=== PATIENT | male | born 1965 ===

== ENCOUNTER 2020-06-20 10:01 | Inpatient (IN) | payer OTHER ==
[2020-06-20] MEDS ORDERED: Sodium Chloride 0.9% 2.5 ML Syringe FLUSH PRN ×2 (10:19→13:37)
[2020-06-20] MEDS ORDERED: MVI, Adult with Vitamin K 10 ML, Thiamine 100 MG, Folic Acid 1 MG in Sodium Chloride 0.... IV ONE ×4 (10:19)
[2020-06-20] MEDS ORDERED: Sodium Chloride 0.9% 10 ML Syringe FLUSH PRN (10:19)
--- NOTE | 2020-06-20 10:46 | EDM.PDOC ---
ED HPI GENERAL MEDICAL PROBLEM - General Chief Complaint: General Stated Complaint: INTOXICATED Time Seen by Provider: 06/20/20 10:14 Source of Information: Reports: Patient, EMS History Limitations: Reports: Altered Mental Status - History of Present Illness INITIAL COMMENTS - FREE TEXT/NARRATIVE: HISTORY AND PHYSICAL: History of present illness: Patient is a 55 year-old male who presents to the ED today via EMS for concern of alcohol intoxication and vomiting. Per EMS, patient has been on a 1 month "drinking binge "and has been vomiting periodically over the last 2 weeks. Per EMS, patient has not been eating well the last 2 weeks due to drinking and vomiting. Per EMS, patient came to [place] 1 month ago from [place] on the train and is living at a hotel. Upon arrival, patient appears intoxicated and mumbles words inappropriately. HPI is limited due to his mental status. Review of systems: As per history of present illness and below otherwise all systems reviewed and negative. Past medical history: As per history of present illness and as reviewed below otherwise noncontributory. Surgical history: As per history of present illness and as reviewed below otherwise noncontributory. Social history: See social history for further information Family history: As per history of present illness and as reviewed below otherwise noncontributory. Physical exam: General: Patient is laying on exam table, his eyes are open to verbal command, speaks words inappropriately, localizes pain. He appears comfortable and does have hiccups on exam. He does smell of alcohol. HEENT: Atraumatic, normocephalic, pupils equal and reactive bilaterally, negative for conjunctival pallor or scleral icterus, mucous membranes dry and tacky, throat clear, neck supple, nontender, trachea midline. No drooling or trismus noted. No meningeal signs. No hot potato voice noted. Lungs: Clear to auscultation, breath sounds equal bilaterally, chest nontender. Heart: S1S2, regular rate and rhythm without overt murmur Abdomen: Soft, nondistended, nontender. Negative for masses or hepatosplenomegaly. Negative for costovertebral tenderness. Pelvis: Stable nontender. Genitourinary: Deferred. Rectal: Deferred. Skin: Intact, warm, dry. No lesions or rashes noted. Extremities: Atraumatic, negative for cords or calf pain. Neurovascular unremarkable. Neuro: Eyes are open to verbal command, speaks words inappropriately, localizes pain. Cranial nerves II-VII intact. Notes: GCS 11. CIWA 7. Patient has not had any vomiting today in the ED. After reassessment following diagnostics, patient is able to communicate effectively with GCS of 15. Patient states he has been drinking continuously for the past 1 month but has had intermittent vomiting the past 2 weeks and consistently vomiting today. Desires detox from alcohol but states he will withdraw if he stops drinking. I did call and speak to Dr. Mireles, hospitalist on-call, and thoroughly discussed patient's case. Will admit inpatient for alcohol detox. Voices understanding and is agreeable to plan of care. Denies any further questions or concerns at this time. Diagnostics: CBC, CMP, UA, Acetaminophen, Salicylate, TSH, Ethanol, Head ct, CXR, Trop, Bedside glucose, Magnesium, COVID19 Therapeutics: Banana bag, Zofran, 1mg Ativan Impression: Alcohol intoxication with nausea Desire for alcohol detox Plan: Admit to inpatient to Dr. Bartlett Definitive disposition and diagnosis as appropriate pending reevaluation and review of above. - Related Data Allergies Allergy/AdvReac Type Severity Reaction Status Date / Time No Known Allergies Allergy Verified 06/20/20 18:25 Home Meds: Home Meds . [No Known Home Meds] 06/20/20 [History] Past Medical History - Past Health History Medical/Surgical History: Denies Medical/Surgical History Social & Family History - Family History Family Medical History: Noncontributory - Tobacco Use Tobacco Use Status *Q: Current Every Day Tobacco User Years of Tobacco use: 25 Packs/Tins Daily: 0.5 - Recreational Drug Use Recreational Drug Use: No ED ROS GENERAL - Review of Systems Review Of Systems: Comprehensive ROS is negative, except as noted in HPI. ED EXAM, GENERAL - Physical Exam Exam: See Below (see dictation) Course - Vital Signs Last Recorded V/S: Last Vital Signs Temp 99.2 F 06/20/20 15:53 Pulse 117 H 06/20/20 15:53 Resp 18 06/20/20 15:53 BP 139/86 06/20/20 15:53 Pulse Ox 98 06/20/20 15:53 - Orders/Labs/Meds Orders: Active Orders 24 hr Category Date Time Status Folic Acid Med 06/21/20 09:00 Active 1 mg SUBCUT DAILY LORazepam [Ativan] Med 06/20/20 12:22 Active See Protocol IVPUSH Q4H PRN Thiamine [Vitamin B-1] Med 06/21/20 09:00 Active 100 mg IVPUSH DAILY Medication Orders Folic Acid (Folic Acid) 1 mg SUBCUT DAILY SOBIA Sodium Chloride (Normal Saline) 1,000 mls @ 125 mls/hr IV Q8H SOBIA Last Admin: 06/20/20 15:27 Dose: 125 mls/hr Documented by: PROFLUC Pantoprazole Sodium 40 mg/ (Sodium Chloride) 10 mls @ 300 mls/hr IV Q24H SOBIA Lorazepam (Ativan) 0 mg IVPUSH Q4H PRN; Protocol PRN Reason: CIWAA Last Admin: 06/20/20 16:56 Dose: 1 mg Documented by: MARIA G Ondansetron HCl (Zofran) 4 mg IVPUSH Q4H PRN PRN Reason: Nausea Promethazine HCl (Phenergan) 25 mg IM Q6H PRN PRN Reason: Nausea Last Admin: 06/20/20 15:27 Dose: 25 mg Documented by: PROFLUC Sodium Chloride (Saline Flush) 2.5 ml FLUSH ASDIRECTED PRN PRN Reason: Keep Vein Open Thiamine HCl (Vitamin B-1) 100 mg IVPUSH DAILY [facility] Labs: Laboratory Tests 06/20/20 06/20/20 06/20/20 Range/Units 10:00 10:00 10:00 WBC 10.25 (4.0-11.0) K/uL RBC 5.23 (4.50-5.90) M/uL Hgb 15.8 (13.0-17.0) g/dL Hct 46.0 (38.0-50.0) % MCV 88.0 (80.0-98.0) fL MCH 30.2 (27.0-32.0) pg MCHC 34.3 (31.0-37.0) g/dL RDW Std Deviation 48.0 (28.0-62.0) fl RDW Coeff of Muna 15 (11.0-15.0) % Plt Count 199 (150-400) K/uL MPV 9.90 (7.40-12.00) fL Neut % (Auto) 57.2 (48.0-80.0) % Lymph % (Auto) 32.3 (16.0-40.0) % [place] % (Auto) 9.4 (0.0-15.0) % Eos % (Auto) 0.2 (0.0-7.0) % Baso % (Auto) 0.9 (0.0-1.5) % Neut # (Auto) 5.9 H (1.4-5.7) K/uL Lymph # (Auto) 3.3 H (0.6-2.4) K/uL [place] # (Auto) 1.0 H (0.0-0.8) K/uL Eos # (Auto) 0.0 (0.0-0.7) K/uL Baso # (Auto) 0.1 (0.0-0.1) K/uL Nucleated RBC % 0.0 /100WBC Nucleated RBCs # 0 K/uL Sodium 136 (136-148) mmol/L Potassium 3.7 (3.5-5.1) mmol/L Chloride 94 L (98-107) mmol/L Carbon Dioxide 25.6 (21.0-32.0) mmol/L BUN 8 (7.0-18.0) mg/dL Creatinine 0.8 (0.8-1.3) mg/dL Est Cr Clr Drug Dosing 108.99 mL/min Estimated GFR (MDRD) > 60.0 ml/min Glucose 143 H (74-106) mg/dL POC Glucose (60-110) mg/dL Calcium 9.6 (8.5-10.1) mg/dL Magnesium 2.5 H (1.8-2.4) mg/dL Total Bilirubin 0.6 (0.2-1.0) mg/dL AST 91 H (15-37) IU/L ALT 140 H (14-63) IU/L Alkaline Phosphatase 82 (46-116) U/L Troponin I (0.000-0.056) ng/mL Total Protein 8.2 (6.4-8.2) g/dL Albumin 4.2 (3.4-5.0) g/dL Globulin 4.0 (2.6-4.0) g/dL Albumin/Globulin Ratio 1.0 (0.9-1.6) TSH 3rd Generation 0.71 (0.36-3.74) uIU/mL Urine Color Urine Appearance Urine pH (5.0-8.0) Ur Specific [place] (1.001-1.035) Urine Protein (NEGATIVE) mg/dL Urine Glucose (UA) (NEGATIVE) mg/dL Urine Ketones (NEGATIVE) mg/dL Urine Occult Blood (NEGATIVE) Urine Nitrite (NEGATIVE) Urine Bilirubin (NEGATIVE) Urine Urobilinogen (<2.0) EU/dL Ur Leukocyte Esterase (NEGATIVE) Salicylates 1.4 (0-20) mg/dL Urine Opiates Screen (NEGATIVE) Ur Oxycodone Screen (NEGATIVE) Urine Methadone Screen (NEGATIVE) Acetaminophen <2.0 ug/mL Ur Barbiturates Screen (NEGATIVE) Ur Phencyclidine Scrn (NEGATIVE) Ur Amphetamine Screen (NEGATIVE) U Methamphetamines Scrn (NEGATIVE) U Benzodiazepines Scrn (NEGATIVE) U Cocaine Metab Screen (NEGATIVE) U Marijuana (THC) Screen (NEGATIVE) Ethyl Alcohol 334 mg/dL 06/20/20 06/20/20 06/20/20 Range/Units 10:00 10:48 11:35 WBC (4.0-11.0) K/uL RBC (4.50-5.90) M/uL Hgb (13.0-17.0) g/dL Hct (38.0-50.0) % MCV (80.0-98.0) fL MCH (27.0-32.0) pg MCHC (31.0-37.0) g/dL RDW Std Deviation (28.0-62.0) fl RDW Coeff of Muna (11.0-15.0) % Plt Count (150-400) K/uL MPV (7.40-12.00) fL Neut % (Auto) (48.0-80.0) % Lymph % (Auto) (16.0-40.0) % [place] % (Auto) (0.0-15.0) % Eos % (Auto) (0.0-7.0) % Baso % (Auto) (0.0-1.5) % Neut # (Auto) (1.4-5.7) K/uL Lymph # (Auto) (0.6-2.4) K/uL [place] # (Auto) (0.0-0.8) K/uL Eos # (Auto) (0.0-0.7) K/uL Baso # (Auto) (0.0-0.1) K/uL Nucleated RBC % /100WBC Nucleated RBCs # K/uL Sodium (136-148) mmol/L Potassium (3.5-5.1) mmol/L Chloride (98-107) mmol/L Carbon Dioxide (21.0-32.0) mmol/L BUN (7.0-18.0) mg/dL Creatinine (0.8-1.3) mg/dL Est Cr Clr Drug Dosing mL/min Estimated GFR (MDRD) ml/min Glucose (74-106) mg/dL POC Glucose 118 H (60-110) mg/dL Calcium (8.5-10.1) mg/dL Magnesium (1.8-2.4) mg/dL Total Bilirubin (0.2-1.0) mg/dL AST (15-37) IU/L ALT (14-63) IU/L Alkaline Phosphatase (46-116) U/L Troponin I < 0.050 (0.000-0.056) ng/mL Total Protein (6.4-8.2) g/dL Albumin (3.4-5.0) g/dL Globulin (2.6-4.0) g/dL Albumin/Globulin Ratio (0.9-1.6) TSH 3rd Generation (0.36-3.74) uIU/mL Urine Color Urine Appearance Urine pH (5.0-8.0) Ur Specific [place] (1.001-1.035) Urine Protein (NEGATIVE) mg/dL Urine Glucose (UA) (NEGATIVE) mg/dL Urine Ketones (NEGATIVE) mg/dL Urine Occult Blood (NEGATIVE) Urine Nitrite (NEGATIVE) Urine Bilirubin (NEGATIVE) Urine Urobilinogen (<2.0) EU/dL Ur Leukocyte Esterase (NEGATIVE) Salicylates (0-20) mg/dL Urine Opiates Screen NEGATIVE (NEGATIVE) Ur Oxycodone Screen NEGATIVE (NEGATIVE) Urine Methadone Screen NEGATIVE (NEGATIVE) Acetaminophen ug/mL Ur Barbiturates Screen NEGATIVE (NEGATIVE) Ur Phencyclidine Scrn NEGATIVE (NEGATIVE) Ur Amphetamine Screen NEGATIVE (NEGATIVE) U Methamphetamines Scrn NEGATIVE (NEGATIVE) U Benzodiazepines Scrn NEGATIVE (NEGATIVE) U Cocaine Metab Screen NEGATIVE (NEGATIVE) U Marijuana (THC) Screen NEGATIVE (NEGATIVE) Ethyl Alcohol mg/dL 06/20/20 Range/Units 11:35 WBC (4.0-11.0) K/uL RBC (4.50-5.90) M/uL Hgb (13.0-17.0) g/dL Hct (38.0-50.0) % MCV (80.0-98.0) fL MCH (27.0-32.0) pg MCHC (31.0-37.0) g/dL RDW Std Deviation (28.0-62.0) fl RDW Coeff of Muna (11.0-15.0) % Plt Count (150-400) K/uL MPV (7.40-12.00) fL Neut % (Auto) (48.0-80.0) % Lymph % (Auto) (16.0-40.0) % [place] % (Auto) (0.0-15.0) % Eos % (Auto) (0.0-7.0) % Baso % (Auto) (0.0-1.5) % Neut # (Auto) (1.4-5.7) K/uL Lymph # (Auto) (0.6-2.4) K/uL [place] # (Auto) (0.0-0.8) K/uL Eos # (Auto) (0.0-0.7) K/uL Baso # (Auto) (0.0-0.1) K/uL Nucleated RBC % /100WBC Nucleated RBCs # K/uL Sodium (136-148) mmol/L Potassium (3.5-5.1) mmol/L Chloride (98-107) mmol/L Carbon Dioxide (21.0-32.0) mmol/L BUN (7.0-18.0) mg/dL Creatinine (0.8-1.3) mg/dL Est Cr Clr Drug Dosing mL/min Estimated GFR (MDRD) ml/min Glucose (74-106) mg/dL POC Glucose (60-110) mg/dL Calcium (8.5-10.1) mg/dL Magnesium (1.8-2.4) mg/dL Total Bilirubin (0.2-1.0) mg/dL AST (15-37) IU/L ALT (14-63) IU/L Alkaline Phosphatase (46-116) U/L Troponin I (0.000-0.056) ng/mL Total Protein (6.4-8.2) g/dL Albumin (3.4-5.0) g/dL Globulin (2.6-4.0) g/dL Albumin/Globulin Ratio (0.9-1.6) TSH 3rd Generation (0.36-3.74) uIU/mL Urine Color YELLOW Urine Appearance CLEAR Urine pH 6.0 (5.0-8.0) Ur Specific [place] 1.010 (1.001-1.035) Urine Protein NEGATIVE (NEGATIVE) mg/dL Urine Glucose (UA) NEGATIVE (NEGATIVE) mg/dL Urine Ketones NEGATIVE (NEGATIVE) mg/dL Urine Occult Blood NEGATIVE (NEGATIVE) Urine Nitrite NEGATIVE (NEGATIVE) Urine Bilirubin NEGATIVE (NEGATIVE) Urine Urobilinogen 4.0 H (<2.0) EU/dL Ur Leukocyte Esterase NEGATIVE (NEGATIVE) Salicylates (0-20) mg/dL Urine Opiates Screen (NEGATIVE) Ur Oxycodone Screen (NEGATIVE) Urine Methadone Screen (NEGATIVE) Acetaminophen ug/mL Ur Barbiturates Screen (NEGATIVE) Ur Phencyclidine Scrn (NEGATIVE) Ur Amphetamine Screen (NEGATIVE) U Methamphetamines Scrn (NEGATIVE) U Benzodiazepines Scrn (NEGATIVE) U Cocaine Metab Screen (NEGATIVE) U Marijuana (THC) Screen (NEGATIVE) Ethyl Alcohol mg/dL Meds: Medications Generic Name Dose Route Start Last Admin Trade Name Freq PRN Reason Stop Dose Admin Folic Acid 1 mg 06/21/20 09:00 Folic Acid SUBCUT DAILY SOBIA Sodium Chloride 1,000 mls @ 125 mls/hr 06/20/20 14:30 06/20/20 15:27 Normal Saline IV 125 mls/hr Q8H SOBIA Administration Pantoprazole Sodium 40 mg/ 10 mls @ 300 mls/hr 06/21/20 09:00 Sodium Chloride IV Q24H SOBIA Lorazepam 0 mg 06/20/20 12:22 06/20/20 16:56 Ativan IVPUSH 1 mg Q4H PRN Administration CIWAA Protocol Ondansetron HCl 4 mg 06/20/20 12:23 Zofran IVPUSH Q4H PRN Nausea Promethazine HCl 25 mg 06/20/20 12:29 06/20/20 15:27 Phenergan IM 25 mg Q6H PRN Administration Nausea Sodium Chloride 2.5 ml 06/20/20 13:37 Saline Flush FLUSH ASDIRECTED PRN Keep Vein Open Thiamine HCl 100 mg 06/21/20 09:00 Vitamin B-1 IVPUSH DAILY SOBIA Discontinued Medications Generic Name Dose Route Start Last Admin Trade Name Artemio PRN Reason Stop Dose Admin Fentanyl Confirm 06/20/20 13:08 06/20/20 13:26 Sublimaze Administered 06/20/20 13:09 Not Given Dose 100 mcg .ROUTE .STK-MED ONE Multivitamins/Minerals 10 ml/ 1,011.2 mls @ 999 mls/hr 06/20/20 10:19 06/20/20 10:44 Thiamine HCl 100 mg/ Folic IV 06/20/20 11:19 999 mls/hr Acid 1 mg/ Sodium Chloride ONETIME ONE Administration Pantoprazole Sodium 40 mg/ 20 mls @ 420 mls/hr 06/20/20 12:58 06/20/20 13:06 Sodium Chloride IVPUSH 06/20/20 13:00 420 mls/hr ONETIME ONE Administration Propofol Confirm 06/20/20 13:09 06/20/20 13:26 Diprivan 100 Ml Administered 06/20/20 13:10 Not Given Dose 100 mls @ as directed .ROUTE .STK-MED ONE Lorazepam 1 mg 06/20/20 12:18 06/20/20 12:34 Ativan IVPUSH 06/20/20 12:19 1 mg ONETIME ONE Administration Midazolam HCl Confirm 06/20/20 13:08 06/20/20 13:27 Versed 1 Mg/Ml Administered 06/20/20 13:09 Not Given Dose 2 mg .ROUTE .STK-MED ONE Ondansetron HCl 4 mg 06/20/20 10:51 06/20/20 11:30 Zofran IVPUSH 06/20/20 10:52 4 mg ONETIME ONE Administration Ondansetron HCl 4 mg 06/20/20 12:18 06/20/20 12:34 Zofran IVPUSH 06/20/20 12:19 4 mg ONETIME ONE Administration Pantoprazole Sodium 40 mg 06/20/20 12:30 06/20/20 13:06 Protonix Iv IV Not Given Q24H SOBIA Sodium Chloride 10 ml 06/20/20 10:19 06/20/20 10:45 Saline Flush FLUSH 10 ml ASDIRECTED PRN Administration Keep Vein Open Sodium Chloride 2.5 ml 06/20/20 10:19 06/20/20 10:45 Saline Flush FLUSH 2.5 ml ASDIRECTED PRN Administration Keep Vein Open Departure - Departure Time of Disposition: 13:18 Disposition: Admitted As Inpatient 67 Clinical Impression: Nausea, Desire for detoxification Alcohol intoxication Qualifiers: Complication of substance-induced condition: with unspecified complication Qualified Code(s): F10.929 - Alcohol use, unspecified with intoxication, unspecified - Discharge Information Sepsis Event Note (ED) - Evaluation Sepsis Screening Result: No Definite Risk - Focused Exam Vital Signs: Vital Signs Temp Pulse Resp BP Pulse Ox 06/20/20 11:57 104 H 132/88 99 06/20/20 10:57 108 H 120/85 98 06/20/20 10:28 106 H 133/89 100 06/20/20 10:03 97.4 F 107 H 16 136/87 100
--- NOTE | 2020-06-20 10:49 | PCM.SN.2 ---
- Free Text/Narrative Note: 12-Lead ECG Interpretation Acquired: 10:38 AM Rhythm: Sinus tachycardia Rate: 110 bpm [place]: Normal Intervals: Prolonged QT interval 515 ms of manual calculation Ectopy: None RV Strain: No obvious RV strain pattern. ST Segments/T-Waves: No notable changes Acute Ischemic Changes: None apparent Interpretation: No obvious or convincing infarct. Severe baseline wander, twelve-lead ECG will need to be repeated. Nondiagnostic for ischemia.
[2020-06-20] MEDS ORDERED: Ondansetron 4 MG/2 ML SDV IVPUSH ONE ×2 (10:51→12:18)
--- NOTE | 2020-06-20 10:53 | PCM.SN.2 ---
- Free Text/Narrative Note: 12-Lead ECG Interpretation #2 Acquired: 10:48 AM Rhythm: Sinus tachycardia Rate: 104 bpm [place]: Normal Intervals: Normal, previously seen QT prolongation has resolved. Ectopy: None RV Strain: No obvious RV strain pattern. ST Segments/T-Waves: No notable changes Acute Ischemic Changes: None apparent Interpretation: No STEMI, normal QT interval compared to most recent ECG from 10:38 AM.
[2020-06-20 10:58] LABS: ACETAMINOPHEN <2.0 ug/mL
[2020-06-20 11:17] LABS: BLOOD UREA NITROGEN,BUN 8 mg/dL (7.0-18.0); CARBON DIOXIDE,CO2 25.6 mmol/L (21.0-32.0); CHLORIDE,CL 94 mmol/L (98-107); GLUCOSE RANDOM 143 mg/dL (74-106); POTASSIUM,K 3.7 mmol/L (3.5-5.1); SODIUM,NA 136 mmol/L (136-148)
--- NOTE | 2020-06-20 11:27 | CR ---
INDICATION: Altered mental status. TECHNIQUE: Portable AP image of the chest. COMPARISON: None. FINDINGS: Lungs and pleural spaces clear. Heart, mediastinum and pulmonary vessels normal. No significant osseous abnormality. IMPRESSION: Negative chest. Dictated by Alexander Mcgowan MD @ Jun 20 2020 11:25AM Signed by Dr. Alexander Mcgowan @ Jun 20 2020 11:25AM
--- NOTE | 2020-06-20 12:01 | CT ---
INDICATION: Altered mental status COMPARISON: None TECHNIQUE: CT examination of the head was performed as axial sections without intravenous contrast. Images were obtained from the vertex of the skull through the skull base. Please note that all CT scans at this facility use dose modulation, iterative reconstruction, and/or weight-based dosing when appropriate to reduce radiation dose to as low as reasonably achievable. FINDINGS: The brain shows no sign of mass lesion, mass effect, hemorrhage, or edema. There are involutional changes. There is moderate cortical atrophy and there is mild white matter disease. There is no hydrocephalus. The visualized portions of the orbits are normal in appearance. The osseous structures are normal in appearance with no sign of abnormality in the skull base or calvarium. There are incidental paranasal sinus mucosal inflammatory changes which appear to be chronic. IMPRESSION: Moderate cortical atrophy. No acute intracranial findings. Incidental paranasal sinus mucosal inflammatory changes which appear to be chronic. Please note that all CT scans at this facility use dose modulation, iterative reconstruction, and/or weight-based dosing when appropriate to reduce radiation dose to as low as reasonably achievable. Dictated by Hosea Roman MD @ Jun 20 2020 11:58AM Signed by Dr. Hosea Roman @ Jun 20 2020 12:00PM
[2020-06-20] MEDS ORDERED: LORazepam 2 MG/ML SDV IVPUSH ONE (12:18)
[2020-06-20] MEDS ORDERED: Promethazine 25 MG/ML SDV IM PRN (12:29)
[2020-06-20] MEDS ORDERED: Pantoprazole 40 MG in Sodium Chloride 0.9% 20 ML IVPUSH ONE (12:58)
[2020-06-20] MEDS: Pantoprazole 40 MG Vial IV SCH ×2 (13:03→13:06)
[2020-06-20] MEDS ORDERED: Midazolam 1 MG/ML 2 ML SDV ONE (13:08)
[2020-06-20] MEDS ORDERED: fentaNYL 100 MCG/2 ML SDV ONE (13:08)
[2020-06-20] MEDS ORDERED: propofoL 0 ML ONE (13:09)
--- NOTE | 2020-06-20 14:14 | PCM.HP.2 ---
H&P History of Present Illness - General Date of Service: 06/20/20 Admit Problem/Dx: Admission Diagnosis/Problem Admission Diagnosis/Problem Alcohol intoxication Source of Information: Patient History Limitations: Reports: No Limitations - History of Present Illness Initial Comments - Free Text/Narative: This 55-year-old male with PMH of alcohol abuse comes in to the ER today with EMS for complaints of nausea vomiting. He is acutely intoxicated. He is very vague with symptoms. He reports that he has been nauseated and vomiting for up to 2 weeks. Has not eaten regularly in 2 weeks. Reports that he has been drinking 1/5-1/5 and a half of liquor daily. Reports that he started drinking again 1 month ago. He has been in multiple inpatient rehab centers. Reports he wants to just detox now and think about it later. Denies any chest pain shortness of breath. Reports some mild abdominal pain. No diarrhea no black or bloody bowel movements. emesis with blood streaking intermittently. Denies urinary concerns no focal neurologic deficits. Reports half a pack a day smoker. No recreational drug use. In the ER WBC normal at 10.25. Platelet count 199,000 NA 136 CL 94 glucose 143 mag 2.5 AST 91 ALT 140 troponin negative chest x-ray negative UA negative U tox negative EtOH level 334. EKG ST with no ST elevation or t wave changes. He will be admitted for alcohol detox as well as nausea vomiting. - Related Data Allergies/Adverse Reactions: Allergies Allergy/AdvReac Type Severity Reaction Status Date / Time No Known Allergies Allergy Verified 06/20/20 10:07 Home Medications: Home Meds . [No Known Home Meds] 06/20/20 [History] Past Medical History - Past Health History Medical/Surgical History: Denies Medical/Surgical History Cardiovascular History: Reports: None. Denies: CAD, Heart Failure, Hypertension Respiratory History: Reports: None. Denies: COPD, SOB Musculoskeletal History: Reports: None Psychiatric History: Reports: Addiction Endocrine/Metabolic History: Reports: None. Denies: Diabetes, Type II, Hypothyroidism - Infectious Disease History Infectious Disease History: Reports: None. Denies: Hepatitis B, Hepatitis C, HI V-Human Immunodeficiency Virus, MRSA Social & Family History - Family History Family Medical History: Noncontributory - Tobacco Use Tobacco Use Status *Q: Current Every Day Tobacco User Years of Tobacco use: 25 Packs/Tins Daily: 0.5 - Alcohol Use Alcohol Use History: Yes Days Per Week of Alcohol Use: 7 Number of Drinks Per Day: 10 Total Drinks Per Week: 70 Alcohol Use Frequency: Daily Desires Substance Cessation Medication: Refuses FDA Approved Med - Recreational Drug Use Recreational Drug Use: No - Living Situation & Occupation Social History Comment: living in hotel. Came to [place] on the train 1 month ago. H&P Review of Systems - Review of Systems: Review Of Systems: See Below General: Reports: Malaise, Fatigue, Decreased Appetite HEENT: Reports: No Symptoms. Denies: Headaches, Visual Changes Pulmonary: Reports: No Symptoms. Denies: Shortness of Breath, Cough Cardiovascular: Reports: No Symptoms. Denies: Chest Pain Gastrointestinal: Reports: Abdominal Pain (epigastric), Decreased Appetite, Nausea, Vomiting. Denies: Black Stool, Bloody Stool, Diarrhea Genitourinary: Reports: No Symptoms. Denies: Dysuria, Frequency Musculoskeletal: Reports: No Symptoms Skin: Reports: No Symptoms Psychiatric: Reports: No Symptoms Neurological: Reports: No Symptoms Hematologic/Lymphatic: Reports: No Symptoms Immunologic: Reports: No Symptoms Exam - Exam Exam: See Below - Vital Signs Vital Signs: Last Vital Signs Temp 97.4 F 06/20/20 10:03 Pulse 116 H 06/20/20 13:13 Resp 16 06/20/20 10:03 BP 123/81 06/20/20 13:13 Pulse Ox 97 06/20/20 13:13 Weight: 77.111 kg - Exam General: Alert, Oriented, Cooperative HEENT: Conjunctiva Clear. No: Mucosa Moist & [place] (dry cracked lips) Neck: Supple, Trachea Midline Lungs: Clear to Auscultation, Normal Respiratory Effort Cardiovascular: Regular Rate, Regular Rhythm GI/Abdominal Exam: Normal Bowel Sounds, Soft, Tender (epigastric) Extremities: Normal Inspection, Normal Range of Motion, Non-Tender, No Pedal Edema Neuro Extensive - Mental Status: Alert, Oriented x3 Neuro Extensive - Motor, Sensory, Reflexes: CN II-XII Intact Psychiatric: Alert, Normal Affect, Anxious, Withdrawal Symptoms (tremors) - Patient Data Lab Results Last 24 hrs: Laboratory Results - last 24 hr 06/20/20 06/20/20 06/20/20 Range/Units 10:00 10:00 10:00 WBC 10.25 (4.0-11.0) K/uL RBC 5.23 (4.50-5.90) M/uL Hgb 15.8 (13.0-17.0) g/dL Hct 46.0 (38.0-50.0) % MCV 88.0 (80.0-98.0) fL MCH 30.2 (27.0-32.0) pg MCHC 34.3 (31.0-37.0) g/dL RDW Std Deviation 48.0 (28.0-62.0) fl RDW Coeff of Muna 15 (11.0-15.0) % Plt Count 199 (150-400) K/uL MPV 9.90 (7.40-12.00) fL Neut % (Auto) 57.2 (48.0-80.0) % Lymph % (Auto) 32.3 (16.0-40.0) % [place] % (Auto) 9.4 (0.0-15.0) % Eos % (Auto) 0.2 (0.0-7.0) % Baso % (Auto) 0.9 (0.0-1.5) % Neut # (Auto) 5.9 H (1.4-5.7) K/uL Lymph # (Auto) 3.3 H (0.6-2.4) K/uL [place] # (Auto) 1.0 H (0.0-0.8) K/uL Eos # (Auto) 0.0 (0.0-0.7) K/uL Baso # (Auto) 0.1 (0.0-0.1) K/uL Nucleated RBC % 0.0 /100WBC Nucleated RBCs # 0 K/uL Sodium 136 (136-148) mmol/L Potassium 3.7 (3.5-5.1) mmol/L Chloride 94 L (98-107) mmol/L Carbon Dioxide 25.6 (21.0-32.0) mmol/L BUN 8 (7.0-18.0) mg/dL Creatinine 0.8 (0.8-1.3) mg/dL Est Cr Clr Drug Dosing 108.99 mL/min Estimated GFR (MDRD) > 60.0 ml/min Glucose 143 H (74-106) mg/dL POC Glucose (60-110) mg/dL Calcium 9.6 (8.5-10.1) mg/dL Magnesium 2.5 H (1.8-2.4) mg/dL Total Bilirubin 0.6 (0.2-1.0) mg/dL AST 91 H (15-37) IU/L ALT 140 H (14-63) IU/L Alkaline Phosphatase 82 (46-116) U/L Troponin I (0.000-0.056) ng/mL Total Protein 8.2 (6.4-8.2) g/dL Albumin 4.2 (3.4-5.0) g/dL Globulin 4.0 (2.6-4.0) g/dL Albumin/Globulin Ratio 1.0 (0.9-1.6) TSH 3rd Generation 0.71 (0.36-3.74) uIU/mL Urine Color Urine Appearance Urine pH (5.0-8.0) Ur Specific [place] (1.001-1.035) Urine Protein (NEGATIVE) mg/dL Urine Glucose (UA) (NEGATIVE) mg/dL Urine Ketones (NEGATIVE) mg/dL Urine Occult Blood (NEGATIVE) Urine Nitrite (NEGATIVE) Urine Bilirubin (NEGATIVE) Urine Urobilinogen (<2.0) EU/dL Ur Leukocyte Esterase (NEGATIVE) Salicylates 1.4 (0-20) mg/dL Urine Opiates Screen (NEGATIVE) Ur Oxycodone Screen (NEGATIVE) Urine Methadone Screen (NEGATIVE) Acetaminophen <2.0 ug/mL Ur Barbiturates Screen (NEGATIVE) Ur Phencyclidine Scrn (NEGATIVE) Ur Amphetamine Screen (NEGATIVE) U Methamphetamines Scrn (NEGATIVE) U Benzodiazepines Scrn (NEGATIVE) U Cocaine Metab Screen (NEGATIVE) U Marijuana (THC) Screen (NEGATIVE) Ethyl Alcohol 334 mg/dL 06/20/20 06/20/20 06/20/20 Range/Units 10:00 10:48 11:35 WBC (4.0-11.0) K/uL RBC (4.50-5.90) M/uL Hgb (13.0-17.0) g/dL Hct (38.0-50.0) % MCV (80.0-98.0) fL MCH (27.0-32.0) pg MCHC (31.0-37.0) g/dL RDW Std Deviation (28.0-62.0) fl RDW Coeff of Muna (11.0-15.0) % Plt Count (150-400) K/uL MPV (7.40-12.00) fL Neut % (Auto) (48.0-80.0) % Lymph % (Auto) (16.0-40.0) % [place] % (Auto) (0.0-15.0) % Eos % (Auto) (0.0-7.0) % Baso % (Auto) (0.0-1.5) % Neut # (Auto) (1.4-5.7) K/uL Lymph # (Auto) (0.6-2.4) K/uL [place] # (Auto) (0.0-0.8) K/uL Eos # (Auto) (0.0-0.7) K/uL Baso # (Auto) (0.0-0.1) K/uL Nucleated RBC % /100WBC Nucleated RBCs # K/uL Sodium (136-148) mmol/L Potassium (3.5-5.1) mmol/L Chloride (98-107) mmol/L Carbon Dioxide (21.0-32.0) mmol/L BUN (7.0-18.0) mg/dL Creatinine (0.8-1.3) mg/dL Est Cr Clr Drug Dosing mL/min Estimated GFR (MDRD) ml/min Glucose (74-106) mg/dL POC Glucose 118 H (60-110) mg/dL Calcium (8.5-10.1) mg/dL Magnesium (1.8-2.4) mg/dL Total Bilirubin (0.2-1.0) mg/dL AST (15-37) IU/L ALT (14-63) IU/L Alkaline Phosphatase (46-116) U/L Troponin I < 0.050 (0.000-0.056) ng/mL Total Protein (6.4-8.2) g/dL Albumin (3.4-5.0) g/dL Globulin (2.6-4.0) g/dL Albumin/Globulin Ratio (0.9-1.6) TSH 3rd Generation (0.36-3.74) uIU/mL Urine Color Urine Appearance Urine pH (5.0-8.0) Ur Specific [place] (1.001-1.035) Urine Protein (NEGATIVE) mg/dL Urine Glucose (UA) (NEGATIVE) mg/dL Urine Ketones (NEGATIVE) mg/dL Urine Occult Blood (NEGATIVE) Urine Nitrite (NEGATIVE) Urine Bilirubin (NEGATIVE) Urine Urobilinogen (<2.0) EU/dL Ur Leukocyte Esterase (NEGATIVE) Salicylates (0-20) mg/dL Urine Opiates Screen NEGATIVE (NEGATIVE) Ur Oxycodone Screen NEGATIVE (NEGATIVE) Urine Methadone Screen NEGATIVE (NEGATIVE) Acetaminophen ug/mL Ur Barbiturates Screen NEGATIVE (NEGATIVE) Ur Phencyclidine Scrn NEGATIVE (NEGATIVE) Ur Amphetamine Screen NEGATIVE (NEGATIVE) U Methamphetamines Scrn NEGATIVE (NEGATIVE) U Benzodiazepines Scrn NEGATIVE (NEGATIVE) U Cocaine Metab Screen NEGATIVE (NEGATIVE) U Marijuana (THC) Screen NEGATIVE (NEGATIVE) Ethyl Alcohol mg/dL 06/20/20 Range/Units 11:35 WBC (4.0-11.0) K/uL RBC (4.50-5.90) M/uL Hgb (13.0-17.0) g/dL Hct (38.0-50.0) % MCV (80.0-98.0) fL MCH (27.0-32.0) pg MCHC (31.0-37.0) g/dL RDW Std Deviation (28.0-62.0) fl RDW Coeff of Muna (11.0-15.0) % Plt Count (150-400) K/uL MPV (7.40-12.00) fL Neut % (Auto) (48.0-80.0) % Lymph % (Auto) (16.0-40.0) % [place] % (Auto) (0.0-15.0) % Eos % (Auto) (0.0-7.0) % Baso % (Auto) (0.0-1.5) % Neut # (Auto) (1.4-5.7) K/uL Lymph # (Auto) (0.6-2.4) K/uL [place] # (Auto) (0.0-0.8) K/uL Eos # (Auto) (0.0-0.7) K/uL Baso # (Auto) (0.0-0.1) K/uL Nucleated RBC % /100WBC Nucleated RBCs # K/uL Sodium (136-148) mmol/L Potassium (3.5-5.1) mmol/L Chloride (98-107) mmol/L Carbon Dioxide (21.0-32.0) mmol/L BUN (7.0-18.0) mg/dL Creatinine (0.8-1.3) mg/dL Est Cr Clr Drug Dosing mL/min Estimated GFR (MDRD) ml/min Glucose (74-106) mg/dL POC Glucose (60-110) mg/dL Calcium (8.5-10.1) mg/dL Magnesium (1.8-2.4) mg/dL Total Bilirubin (0.2-1.0) mg/dL AST (15-37) IU/L ALT (14-63) IU/L Alkaline Phosphatase (46-116) U/L Troponin I (0.000-0.056) ng/mL Total Protein (6.4-8.2) g/dL Albumin (3.4-5.0) g/dL Globulin (2.6-4.0) g/dL Albumin/Globulin Ratio (0.9-1.6) TSH 3rd Generation (0.36-3.74) uIU/mL Urine Color YELLOW Urine Appearance CLEAR Urine pH 6.0 (5.0-8.0) Ur Specific [place] 1.010 (1.001-1.035) Urine Protein NEGATIVE (NEGATIVE) mg/dL Urine Glucose (UA) NEGATIVE (NEGATIVE) mg/dL Urine Ketones NEGATIVE (NEGATIVE) mg/dL Urine Occult Blood NEGATIVE (NEGATIVE) Urine Nitrite NEGATIVE (NEGATIVE) Urine Bilirubin NEGATIVE (NEGATIVE) Urine Urobilinogen 4.0 H (<2.0) EU/dL Ur Leukocyte Esterase NEGATIVE (NEGATIVE) Salicylates (0-20) mg/dL Urine Opiates Screen (NEGATIVE) Ur Oxycodone Screen (NEGATIVE) Urine Methadone Screen (NEGATIVE) Acetaminophen ug/mL Ur Barbiturates Screen (NEGATIVE) Ur Phencyclidine Scrn (NEGATIVE) Ur Amphetamine Screen (NEGATIVE) U Methamphetamines Scrn (NEGATIVE) U Benzodiazepines Scrn (NEGATIVE) U Cocaine Metab Screen (NEGATIVE) U Marijuana (THC) Screen (NEGATIVE) Ethyl Alcohol mg/dL Result Diagrams: 06/20/20 10:00 06/20/20 10:00 Sepsis Event Note - Evaluation Sepsis Screening Result: No Definite Risk - Focused Exam Vital Signs: Vital Signs Temp Pulse Resp BP Pulse Ox 06/20/20 13:13 116 H 123/81 97 06/20/20 12:28 102 H 138/85 97 06/20/20 11:57 104 H 132/88 99 06/20/20 10:57 108 H 120/85 98 06/20/20 10:28 106 H 133/89 100 06/20/20 10:03 97.4 F 107 H 16 136/87 100 - Problem List (1) Nausea and vomiting SNOMED Code(s): 29199058 ICD Code: R11.2 - NAUSEA WITH VOMITING, UNSPECIFIED Status: Acute Current Visit: Yes (2) Alcohol intoxication SNOMED Code(s): 15525135 ICD Code: F10.929 - ALCOHOL USE, UNSPECIFIED WITH INTOXICATION, UNSPECIFIED Status: Acute Current Visit: Yes Qualifiers: Complication of substance-induced condition: with unspecified complication Qualified Code(s): F10.929 - Alcohol use, unspecified with intoxication, unspecified (3) Desire for detoxification SNOMED Code(s): 314074611 ICD Code: [id number] - Status: Acute Current Visit: Yes Problem List Initiated/Reviewed/Updated: Yes Orders Last 24hrs: Active Orders 24 hr Category Date Time Status Admission Status [Patient Status] [ADT] Stat ADT 06/20/20 12:23 Active Antiembolic Devices [RC] PER UNIT ROUTINE Care 06/20/20 12:31 Active CIWAA Assessment [RC] Q4H Care 06/20/20 13:43 Active Intake and Output [RC] QSHIFT Care 06/20/20 13:44 Active Oxygen Therapy [RC] PRN Care 06/20/20 12:23 Active Up With Assistance [RC] ASDIRECTED Care 06/20/20 13:44 Active VTE/DVT Education [RC] PER UNIT ROUTINE Care 06/20/20 12:23 Active Vital Signs [RC] Q4H Care 06/20/20 12:23 Active Clear Liquid Diet [DIET] Diet 06/20/20 Breakfast Active CBC WITH AUTO DIFF [HEME] AM Lab 06/21/20 05:11 Ordered CBC WITH AUTO DIFF [HEME] AM Lab 06/22/20 05:11 Ordered CBC WITH AUTO DIFF [HEME] AM Lab 06/23/20 05:11 Ordered COMPREHENSIVE METABOLIC PN,CMP [CHEM] AM Lab 06/21/20 05:11 Ordered COMPREHENSIVE METABOLIC PN,CMP [CHEM] AM Lab 06/22/20 05:11 Ordered COMPREHENSIVE METABOLIC PN,CMP [CHEM] AM Lab 06/23/20 05:11 Ordered CORONAVIRUS COVID-19 BOLIVAR [MOLEC] Stat Lab 06/20/20 13:17 Received MAGNESIUM [CHEM] AM Lab 06/21/20 05:11 Ordered MAGNESIUM [CHEM] AM Lab 06/22/20 05:11 Ordered PHOSPHORUS [CHEM] AM Lab 06/21/20 05:11 Ordered PHOSPHORUS [CHEM] AM Lab 06/22/20 05:11 Ordered Folic Acid Med 06/21/20 09:00 Active 1 mg SUBCUT DAILY LORazepam [Ativan] Med 06/20/20 12:22 Active See Protocol IVPUSH Q4H PRN Ondansetron [Zofran] Med 06/20/20 12:23 Active 4 mg IVPUSH Q4H PRN Promethazine [Phenergan] Med 06/20/20 12:29 Active 25 mg IM Q6H PRN Sodium Chloride 0.9% [Saline Flush] Med 06/20/20 13:37 Active 2.5 ml FLUSH ASDIRECTED PRN Thiamine [Vitamin B-1] Med 06/21/20 09:00 Active 100 mg IVPUSH DAILY Sequential Compression Device [OM.PC] Per Unit Routine Oth 06/20/20 12:24 Ordered Medication Orders Folic Acid (Folic Acid) 1 mg SUBCUT DAILY SOBIA Lorazepam (Ativan) 0 mg IVPUSH Q4H PRN; Protocol PRN Reason: CIWAA Ondansetron HCl (Zofran) 4 mg IVPUSH Q4H PRN PRN Reason: Nausea Promethazine HCl (Phenergan) 25 mg IM Q6H PRN PRN Reason: Nausea Sodium Chloride (Saline Flush) 2.5 ml FLUSH ASDIRECTED PRN PRN Reason: Keep Vein Open Thiamine HCl (Vitamin B-1) 100 mg IVPUSH DAILY [facility] Assessment/Plan Comment:: This 35-year-old male admitted with alcohol intoxication for alcohol detox along with nausea and vomiting 1. Alcohol intoxication/alcohol detox - CIWAA assessment every 4 hours - Ativan protocol per CIWAA - Thiamine and folic acid supplementation daily -IVF overnight -Monitor liver function as well as electrolytes daily 2. Nausea/vomiting -Clear liquid diet -IVF overnight -Zofran and Phenergan as needed nausea - Lipase normal - Protonix 40 mg IV daily VTE prophylaxis: SCDs and ambulation Dispo: 2-3 days
[2020-06-20] MEDS: Sodium Chloride 0.9% 1,000 ML IV SCH ×2 (15:27→23:41)
[2020-06-20] MEDS: LORazepam 2 MG/ML SDV IVPUSH PRN ×2 (16:56→21:02)
[2020-06-20] MEDS: Ondansetron 4 MG/2 ML SDV IVPUSH PRN (20:07)
[2020-06-21] MEDS: LORazepam 2 MG/ML SDV IVPUSH PRN ×5 (02:25→22:05)
[2020-06-21] MEDS: Ondansetron 4 MG/2 ML SDV IVPUSH PRN ×3 (02:30→21:09)
[2020-06-21 06:37] LABS: BLOOD UREA NITROGEN,BUN 11 mg/dL (7.0-18.0); CARBON DIOXIDE,CO2 27.2 mmol/L (21.0-32.0); CHLORIDE,CL 98 mmol/L (98-107); GLUCOSE RANDOM 87 mg/dL (74-106); POTASSIUM,K 3.1 mmol/L (3.5-5.1); SODIUM,NA 134 mmol/L (136-148)
[2020-06-21] MEDS: Sodium Chloride 0.9% 1,000 ML IV SCH ×2 (07:54→18:20)
[2020-06-21] MEDS: Sodium Chloride 0.9% with KCl 1,000 ML IV ONE ×2 (08:21→11:30)
[2020-06-21] MEDS: Pantoprazole 40 MG in Sodium Chloride 0.9% 10 ML IV SCH (08:25)
[2020-06-21] MEDS ORDERED: Thiamine 200 MG/2 ML MDV IVPUSH SCH (09:00)
[2020-06-21] MEDS ORDERED: Folic Acid 50 MG/10 ML MDV SUBCUT SCH (09:00)
--- NOTE | 2020-06-21 09:06 | PCM.PN ---
- General Info Date of Service: 06/21/20 Admission Dx/Problem (Free Text): Admission Diagnosis/Problem Admission Diagnosis/Problem Alcohol intoxication Subjective Update: Reports he is feeling a little better, tremors improved, but still there. Still nauseated intermittently but is asking for broth and yogurt to try. No chest pain or SOB. No abdominal pain. Urinating well. Functional Status: Reports: Pain Controlled, Ambulating, Urinating - Review of Systems General: Reports: Fatigue HEENT: Reports: No Symptoms. Denies: Headaches, Visual Changes Pulmonary: Reports: No Symptoms. Denies: Shortness of Breath Cardiovascular: Reports: No Symptoms. Denies: Chest Pain Gastrointestinal: Reports: Nausea. Denies: Abdominal Pain, Diarrhea, Vomiting Genitourinary: Reports: No Symptoms Musculoskeletal: Reports: No Symptoms Skin: Reports: No Symptoms Neurological: Reports: Tremors Psychiatric: Reports: No Symptoms - Patient Data Vitals - Most Recent: Last Vital Signs Temp 97.9 F 06/21/20 08:21 Pulse 73 06/21/20 08:21 Resp 15 06/21/20 08:21 BP 127/64 06/21/20 08:21 Pulse Ox 96 06/21/20 08:21 Weight - Most Recent: 77.111 kg I&O - Last 24 Hours: Intake & Output 06/20/20 06/21/20 06/21/20 22:59 06:59 14:59 Intake Total 900 Balance 900 Lab Results Last 24 Hours: Laboratory Results - last 24 hr 06/20/20 06/20/20 06/20/20 Range/Units 10:00 10:00 10:00 WBC 10.25 (4.0-11.0) K/uL RBC 5.23 (4.50-5.90) M/uL Hgb 15.8 (13.0-17.0) g/dL Hct 46.0 (38.0-50.0) % MCV 88.0 (80.0-98.0) fL MCH 30.2 (27.0-32.0) pg MCHC 34.3 (31.0-37.0) g/dL RDW Std Deviation 48.0 (28.0-62.0) fl RDW Coeff of Muna 15 (11.0-15.0) % Plt Count 199 (150-400) K/uL MPV 9.90 (7.40-12.00) fL Neut % (Auto) 57.2 (48.0-80.0) % Lymph % (Auto) 32.3 (16.0-40.0) % [place] % (Auto) 9.4 (0.0-15.0) % Eos % (Auto) 0.2 (0.0-7.0) % Baso % (Auto) 0.9 (0.0-1.5) % Neut # (Auto) 5.9 H (1.4-5.7) K/uL Lymph # (Auto) 3.3 H (0.6-2.4) K/uL [place] # (Auto) 1.0 H (0.0-0.8) K/uL Eos # (Auto) 0.0 (0.0-0.7) K/uL Baso # (Auto) 0.1 (0.0-0.1) K/uL Nucleated RBC % 0.0 /100WBC Nucleated RBCs # 0 K/uL Sodium 136 (136-148) mmol/L Potassium 3.7 (3.5-5.1) mmol/L Chloride 94 L (98-107) mmol/L Carbon Dioxide 25.6 (21.0-32.0) mmol/L BUN 8 (7.0-18.0) mg/dL Creatinine 0.8 (0.8-1.3) mg/dL Est Cr Clr Drug Dosing 108.99 mL/min Estimated GFR (MDRD) > 60.0 ml/min Glucose 143 H (74-106) mg/dL POC Glucose (60-110) mg/dL Calcium 9.6 (8.5-10.1) mg/dL Phosphorus (2.6-4.7) mg/dL Magnesium 2.5 H (1.8-2.4) mg/dL Total Bilirubin 0.6 (0.2-1.0) mg/dL AST 91 H (15-37) IU/L ALT 140 H (14-63) IU/L Alkaline Phosphatase 82 (46-116) U/L Troponin I (0.000-0.056) ng/mL Total Protein 8.2 (6.4-8.2) g/dL Albumin 4.2 (3.4-5.0) g/dL Globulin 4.0 (2.6-4.0) g/dL Albumin/Globulin Ratio 1.0 (0.9-1.6) Lipase (73-393) U/L TSH 3rd Generation 0.71 (0.36-3.74) uIU/mL Urine Color Urine Appearance Urine pH (5.0-8.0) Ur Specific [place] (1.001-1.035) Urine Protein (NEGATIVE) mg/dL Urine Glucose (UA) (NEGATIVE) mg/dL Urine Ketones (NEGATIVE) mg/dL Urine Occult Blood (NEGATIVE) Urine Nitrite (NEGATIVE) Urine Bilirubin (NEGATIVE) Urine Urobilinogen (<2.0) EU/dL Ur Leukocyte Esterase (NEGATIVE) Salicylates 1.4 (0-20) mg/dL Urine Opiates Screen (NEGATIVE) Ur Oxycodone Screen (NEGATIVE) Urine Methadone Screen (NEGATIVE) Acetaminophen <2.0 ug/mL Ur Barbiturates Screen (NEGATIVE) Ur Phencyclidine Scrn (NEGATIVE) Ur Amphetamine Screen (NEGATIVE) U Methamphetamines Scrn (NEGATIVE) U Benzodiazepines Scrn (NEGATIVE) U Cocaine Metab Screen (NEGATIVE) U Marijuana (THC) Screen (NEGATIVE) Ethyl Alcohol 334 mg/dL SARS-CoV-2 RNA (BOLIVAR) (NEGATIVE) 06/20/20 06/20/20 06/20/20 Range/Units 10:00 10:48 11:35 WBC (4.0-11.0) K/uL RBC (4.50-5.90) M/uL Hgb (13.0-17.0) g/dL Hct (38.0-50.0) % MCV (80.0-98.0) fL MCH (27.0-32.0) pg MCHC (31.0-37.0) g/dL RDW Std Deviation (28.0-62.0) fl RDW Coeff of Muna (11.0-15.0) % Plt Count (150-400) K/uL MPV (7.40-12.00) fL Neut % (Auto) (48.0-80.0) % Lymph % (Auto) (16.0-40.0) % [place] % (Auto) (0.0-15.0) % Eos % (Auto) (0.0-7.0) % Baso % (Auto) (0.0-1.5) % Neut # (Auto) (1.4-5.7) K/uL Lymph # (Auto) (0.6-2.4) K/uL [place] # (Auto) (0.0-0.8) K/uL Eos # (Auto) (0.0-0.7) K/uL Baso # (Auto) (0.0-0.1) K/uL Nucleated RBC % /100WBC Nucleated RBCs # K/uL Sodium (136-148) mmol/L Potassium (3.5-5.1) mmol/L Chloride (98-107) mmol/L Carbon Dioxide (21.0-32.0) mmol/L BUN (7.0-18.0) mg/dL Creatinine (0.8-1.3) mg/dL Est Cr Clr Drug Dosing mL/min Estimated GFR (MDRD) ml/min Glucose (74-106) mg/dL POC Glucose 118 H (60-110) mg/dL Calcium (8.5-10.1) mg/dL Phosphorus (2.6-4.7) mg/dL Magnesium (1.8-2.4) mg/dL Total Bilirubin (0.2-1.0) mg/dL AST (15-37) IU/L ALT (14-63) IU/L Alkaline Phosphatase (46-116) U/L Troponin I < 0.050 (0.000-0.056) ng/mL Total Protein (6.4-8.2) g/dL Albumin (3.4-5.0) g/dL Globulin (2.6-4.0) g/dL Albumin/Globulin Ratio (0.9-1.6) Lipase (73-393) U/L TSH 3rd Generation (0.36-3.74) uIU/mL Urine Color Urine Appearance Urine pH (5.0-8.0) Ur Specific [place] (1.001-1.035) Urine Protein (NEGATIVE) mg/dL Urine Glucose (UA) (NEGATIVE) mg/dL Urine Ketones (NEGATIVE) mg/dL Urine Occult Blood (NEGATIVE) Urine Nitrite (NEGATIVE) Urine Bilirubin (NEGATIVE) Urine Urobilinogen (<2.0) EU/dL Ur Leukocyte Esterase (NEGATIVE) Salicylates (0-20) mg/dL Urine Opiates Screen NEGATIVE (NEGATIVE) Ur Oxycodone Screen NEGATIVE (NEGATIVE) Urine Methadone Screen NEGATIVE (NEGATIVE) Acetaminophen ug/mL Ur Barbiturates Screen NEGATIVE (NEGATIVE) Ur Phencyclidine Scrn NEGATIVE (NEGATIVE) Ur Amphetamine Screen NEGATIVE (NEGATIVE) U Methamphetamines Scrn NEGATIVE (NEGATIVE) U Benzodiazepines Scrn NEGATIVE (NEGATIVE) U Cocaine Metab Screen NEGATIVE (NEGATIVE) U Marijuana (THC) Screen NEGATIVE (NEGATIVE) Ethyl Alcohol mg/dL SARS-CoV-2 RNA (BOLIVAR) (NEGATIVE) 06/20/20 06/20/20 06/20/20 Range/Units 11:35 13:17 14:33 WBC (4.0-11.0) K/uL RBC (4.50-5.90) M/uL Hgb (13.0-17.0) g/dL Hct (38.0-50.0) % MCV (80.0-98.0) fL MCH (27.0-32.0) pg MCHC (31.0-37.0) g/dL RDW Std Deviation (28.0-62.0) fl RDW Coeff of Muna (11.0-15.0) % Plt Count (150-400) K/uL MPV (7.40-12.00) fL Neut % (Auto) (48.0-80.0) % Lymph % (Auto) (16.0-40.0) % [place] % (Auto) (0.0-15.0) % Eos % (Auto) (0.0-7.0) % Baso % (Auto) (0.0-1.5) % Neut # (Auto) (1.4-5.7) K/uL Lymph # (Auto) (0.6-2.4) K/uL [place] # (Auto) (0.0-0.8) K/uL Eos # (Auto) (0.0-0.7) K/uL Baso # (Auto) (0.0-0.1) K/uL Nucleated RBC % /100WBC Nucleated RBCs # K/uL Sodium (136-148) mmol/L Potassium (3.5-5.1) mmol/L Chloride (98-107) mmol/L Carbon Dioxide (21.0-32.0) mmol/L BUN (7.0-18.0) mg/dL Creatinine (0.8-1.3) mg/dL Est Cr Clr Drug Dosing mL/min Estimated GFR (MDRD) ml/min Glucose (74-106) mg/dL POC Glucose (60-110) mg/dL Calcium (8.5-10.1) mg/dL Phosphorus (2.6-4.7) mg/dL Magnesium (1.8-2.4) mg/dL Total Bilirubin (0.2-1.0) mg/dL AST (15-37) IU/L ALT (14-63) IU/L Alkaline Phosphatase (46-116) U/L Troponin I (0.000-0.056) ng/mL Total Protein (6.4-8.2) g/dL Albumin (3.4-5.0) g/dL Globulin (2.6-4.0) g/dL Albumin/Globulin Ratio (0.9-1.6) Lipase 139 (73-393) U/L TSH 3rd Generation (0.36-3.74) uIU/mL Urine Color YELLOW Urine Appearance CLEAR Urine pH 6.0 (5.0-8.0) Ur Specific [place] 1.010 (1.001-1.035) Urine Protein NEGATIVE (NEGATIVE) mg/dL Urine Glucose (UA) NEGATIVE (NEGATIVE) mg/dL Urine Ketones NEGATIVE (NEGATIVE) mg/dL Urine Occult Blood NEGATIVE (NEGATIVE) Urine Nitrite NEGATIVE (NEGATIVE) Urine Bilirubin NEGATIVE (NEGATIVE) Urine Urobilinogen 4.0 H (<2.0) EU/dL Ur Leukocyte Esterase NEGATIVE (NEGATIVE) Salicylates (0-20) mg/dL Urine Opiates Screen (NEGATIVE) Ur Oxycodone Screen (NEGATIVE) Urine Methadone Screen (NEGATIVE) Acetaminophen ug/mL Ur Barbiturates Screen (NEGATIVE) Ur Phencyclidine Scrn (NEGATIVE) Ur Amphetamine Screen (NEGATIVE) U Methamphetamines Scrn (NEGATIVE) U Benzodiazepines Scrn (NEGATIVE) U Cocaine Metab Screen (NEGATIVE) U Marijuana (THC) Screen (NEGATIVE) Ethyl Alcohol mg/dL SARS-CoV-2 RNA (BOLIVAR) NEGATIVE (NEGATIVE) 06/21/20 06/21/20 Range/Units 05:10 05:10 WBC 8.70 (4.0-11.0) K/uL RBC 3.75 L (4.50-5.90) M/uL Hgb 11.3 L (13.0-17.0) g/dL Hct 33.4 L (38.0-50.0) % MCV 89.1 (80.0-98.0) fL MCH 30.1 (27.0-32.0) pg MCHC 33.8 (31.0-37.0) g/dL RDW Std Deviation 49.4 (28.0-62.0) fl RDW Coeff of Muna 15 (11.0-15.0) % Plt Count 161 (150-400) K/uL MPV 10.10 (7.40-12.00) fL Neut % (Auto) 54.6 (48.0-80.0) % Lymph % (Auto) 30.3 (16.0-40.0) % [place] % (Auto) 13.6 (0.0-15.0) % Eos % (Auto) 0.6 (0.0-7.0) % Baso % (Auto) 0.9 (0.0-1.5) % Neut # (Auto) 4.8 (1.4-5.7) K/uL Lymph # (Auto) 2.6 H (0.6-2.4) K/uL [place] # (Auto) 1.2 H (0.0-0.8) K/uL Eos # (Auto) 0.1 (0.0-0.7) K/uL Baso # (Auto) 0.1 (0.0-0.1) K/uL Nucleated RBC % 0.0 /100WBC Nucleated RBCs # 0 K/uL Sodium 134 L (136-148) mmol/L Potassium 3.1 L (3.5-5.1) mmol/L Chloride 98 (98-107) mmol/L Carbon Dioxide 27.2 (21.0-32.0) mmol/L BUN 11 (7.0-18.0) mg/dL Creatinine 0.9 (0.8-1.3) mg/dL Est Cr Clr Drug Dosing 96.88 mL/min Estimated GFR (MDRD) > 60.0 ml/min Glucose 87 (74-106) mg/dL POC Glucose (60-110) mg/dL Calcium 8.4 L (8.5-10.1) mg/dL Phosphorus 3.5 (2.6-4.7) mg/dL Magnesium 1.8 (1.8-2.4) mg/dL Total Bilirubin 1.2 H (0.2-1.0) mg/dL AST 58 H (15-37) IU/L ALT 88 H (14-63) IU/L Alkaline Phosphatase 55 (46-116) U/L Troponin I (0.000-0.056) ng/mL Total Protein 5.6 L (6.4-8.2) g/dL Albumin 3.1 L (3.4-5.0) g/dL Globulin 2.5 L (2.6-4.0) g/dL Albumin/Globulin Ratio 1.2 (0.9-1.6) Lipase (73-393) U/L TSH 3rd Generation (0.36-3.74) uIU/mL Urine Color Urine Appearance Urine pH (5.0-8.0) Ur Specific [place] (1.001-1.035) Urine Protein (NEGATIVE) mg/dL Urine Glucose (UA) (NEGATIVE) mg/dL Urine Ketones (NEGATIVE) mg/dL Urine Occult Blood (NEGATIVE) Urine Nitrite (NEGATIVE) Urine Bilirubin (NEGATIVE) Urine Urobilinogen (<2.0) EU/dL Ur Leukocyte Esterase (NEGATIVE) Salicylates (0-20) mg/dL Urine Opiates Screen (NEGATIVE) Ur Oxycodone Screen (NEGATIVE) Urine Methadone Screen (NEGATIVE) Acetaminophen ug/mL Ur Barbiturates Screen (NEGATIVE) Ur Phencyclidine Scrn (NEGATIVE) Ur Amphetamine Screen (NEGATIVE) U Methamphetamines Scrn (NEGATIVE) U Benzodiazepines Scrn (NEGATIVE) U Cocaine Metab Screen (NEGATIVE) U Marijuana (THC) Screen (NEGATIVE) Ethyl Alcohol mg/dL SARS-CoV-2 RNA (BOLIVAR) (NEGATIVE) Med Orders - Current: Current Medications Folic Acid (Folic Acid) 1 mg SUBCUT DAILY [facility] Last Admin: 06/21/20 08:45 Dose: 1 mg Documented by: Sodium Chloride (Normal Saline) 1,000 mls @ 125 mls/hr IV Q8H [facility] Last Admin: 06/21/20 07:54 Dose: 125 mls/hr Documented by: Pantoprazole Sodium 40 mg/ (Sodium Chloride) 10 mls @ 300 mls/hr IV Q24H [facility] Last Admin: 06/21/20 08:25 Dose: 300 mls/hr Documented by: Thiamine HCl 100 mg/ Sodium (Chloride) 101 mls @ 404 mls/hr IV DAILY [facility] Potassium Chloride/Sodium Chloride (Normal Saline With 40 Meq Kcl) 1,000 mls @ 150 mls/hr IV ONETIME ONE Stop: 06/21/20 14:31 Last Admin: 06/21/20 08:21 Dose: 150 mls/hr Documented by: Sodium Chloride (Normal Saline) 500 mls @ 999 mls/hr IV .BOLUS [facility] Lorazepam (Ativan) 0 mg IVPUSH Q4H PRN; Protocol PRN Reason: CIWAA Last Admin: 06/21/20 02:25 Dose: 1 mg Documented by: Ondansetron HCl (Zofran) 4 mg IVPUSH Q4H PRN PRN Reason: Nausea Last Admin: 06/21/20 02:30 Dose: 4 mg Documented by: Promethazine HCl (Phenergan) 25 mg IM Q6H PRN PRN Reason: Nausea Last Admin: 06/20/20 15:27 Dose: 25 mg Documented by: Sodium Chloride (Saline Flush) 2.5 ml FLUSH ASDIRECTED PRN PRN Reason: Keep Vein Open Discontinued Medications Fentanyl (Sublimaze) Confirm Administered Dose 100 mcg .ROUTE .STK-MED ONE Stop: 06/20/20 13:09 Last Admin: 06/20/20 13:26 Dose: Not Given Documented by: Multivitamins/Minerals 10 ml/Thiamine HCl 100 mg/ Folic Acid 1 mg/ Sodium Chloride 1,011.2 mls @ 999 mls/hr IV ONETIME ONE Stop: 06/20/20 11:19 Last Admin: 06/20/20 10:44 Dose: 999 mls/hr Documented by: Pantoprazole Sodium 40 mg/ (Sodium Chloride) 20 mls @ 420 mls/hr IVPUSH ONETIME ONE Stop: 06/20/20 13:00 Last Admin: 06/20/20 13:06 Dose: 420 mls/hr Documented by: Propofol (Diprivan 100 Ml) Confirm Administered Dose 100 mls @ as directed .ROUTE .STK-MED ONE Stop: 06/20/20 13:10 Last Admin: 06/20/20 13:26 Dose: Not Given Documented by: Lorazepam (Ativan) 1 mg IVPUSH ONETIME ONE Stop: 06/20/20 12:19 Last Admin: 06/20/20 12:34 Dose: 1 mg Documented by: Midazolam HCl (Versed 1 Mg/Ml) Confirm Administered Dose 2 mg .ROUTE .STK-MED ONE Stop: 06/20/20 13:09 Last Admin: 06/20/20 13:27 Dose: Not Given Documented by: Ondansetron HCl (Zofran) 4 mg IVPUSH ONETIME ONE Stop: 06/20/20 10:52 Last Admin: 06/20/20 11:30 Dose: 4 mg Documented by: Ondansetron HCl (Zofran) 4 mg IVPUSH ONETIME ONE Stop: 06/20/20 12:19 Last Admin: 06/20/20 12:34 Dose: 4 mg Documented by: Pantoprazole Sodium (Protonix Iv) 40 mg IV Q24H [facility] Last Admin: 06/20/20 13:06 Dose: Not Given Documented by: Sodium Chloride (Saline Flush) 10 ml FLUSH ASDIRECTED PRN PRN Reason: Keep Vein Open Last Admin: 06/20/20 10:45 Dose: 10 ml Documented by: Sodium Chloride (Saline Flush) 2.5 ml FLUSH ASDIRECTED PRN PRN Reason: Keep Vein Open Last Admin: 06/20/20 10:45 Dose: 2.5 ml Documented by: - Exam General: Alert, Oriented, Cooperative, No Acute Distress Lungs: Clear to Auscultation, Normal Respiratory Effort Cardiovascular: Regular Rate, Regular Rhythm GI/Abdominal Exam: Normal Bowel Sounds, Soft, Non-Tender Extremities: Normal Inspection, Normal Range of Motion, Non-Tender, No Pedal Edema Neurological: No New Focal Deficit Psy/Mental Status: Anxious, Withdrawal Symptoms (mild tremors and anxiety noted.). No: Hallucinations Sepsis Event Note - Evaluation Sepsis Screening Result: No Definite Risk - Focused Exam Vital Signs: Vital Signs Temp Pulse Resp BP BP Pulse Ox 06/21/20 08:21 97.9 F 73 15 127/64 96 06/21/20 04:07 98.7 F 78 16 124/68 96 06/20/20 23:58 99.3 F 91 19 133/68 95 - Problem List & Annotations (1) Nausea and vomiting SNOMED Code(s): 94612545 Code(s): R11.2 - NAUSEA WITH VOMITING, UNSPECIFIED Status: Acute Current Visit: Yes (2) Alcohol intoxication SNOMED Code(s): 92510714 Code(s): F10.929 - ALCOHOL USE, UNSPECIFIED WITH INTOXICATION, UNSPECIFIED Status: Acute Current Visit: Yes Qualifiers: Complication of substance-induced condition: with unspecified complication Qualified Code(s): F10.929 - Alcohol use, unspecified with intoxication, unspecified (3) Desire for detoxification SNOMED Code(s): 498229079 Code(s): DWU6203 - Status: Acute Current Visit: Yes - Problem List Review Problem List Initiated/Reviewed/Updated: Yes - My Orders Last 24 Hours: My Active Orders 06/20/20 13:37 Sodium Chloride 0.9% [Saline Flush] 2.5 ml FLUSH ASDIRECTED PRN 06/20/20 13:43 CIWAA Assessment [RC] Q4H 06/20/20 13:44 Intake and Output [RC] Q12H Up With Assistance [RC] ASDIRECTED 06/20/20 14:30 Sodium Chloride 0.9% [Normal Saline] 1,000 ml IV Q8H 06/21/20 Breakfast Full Liquid Diet [DIET] 06/21/20 07:52 Sodium Chloride 0.9% with KCl [Normal Saline with 40 mEq KCl] 1,000 ml IV ONETIME 06/21/20 09:00 Pantoprazole [ProTONIX IV] 40 mg Sodium Chloride 0.9% [Normal Saline] 10 ml IV Q24H 06/21/20 09:15 Sodium Chloride 0.9% [Normal Saline] 500 ml IV .BOLUS 06/22/20 05:11 MAGNESIUM [CHEM] AM PHOSPHORUS [CHEM] AM - Plan Plan:: This 35-year-old male admitted with alcohol intoxication for alcohol detox along with nausea and vomiting 1. Alcohol detox - CIWAA assessment every 4 hours - Ativan protocol per CIWAA - Thiamine and folic acid supplementation daily -Continue IVF - replace Potassium IV this morning, Mg and phos stable. 2. Nausea/vomiting -Improved, asking for yogurt, increase diet to yogurt. - Zofran and Phenergan as needed nausea - Lipase normal - Protonix 40 mg IV daily - had large diarrhea today, will obtain stool studies VTE prophylaxis: SCDs and ambulation Dispo: 2-3 days
[2020-06-21] MEDS ORDERED: Sodium Chloride 0.9% 500 ML IV SCH (09:15)
[2020-06-21] MEDS: Thiamine 100 MG in Sodium Chloride 0.9% 100 ML IV SCH (09:59)
[2020-06-21] MEDS ORDERED: Sodium Chloride 0.9% with KCl 1,000 ML IV ONE (11:00)
--- NOTE | 2020-06-21 14:08 | US ---
INDICATION: Transaminitis TECHNIQUE: Ultrasound abdomen limited. Sonographic images of the right upper quadrant were obtained using buchanan-scale and color Doppler images. COMPARISON: None FINDINGS: Liver: Normal size. Diffusely hyperechoic consistent with fatty infiltration. No masses. No intrahepatic biliary dilatation. Gallbladder: No stones or sludge. Normal wall thickness. No pericholecystic fluid. Common bile duct: 3 mm. Pancreas: Not visualized secondary to bowel gas. Right kidney: Normal in size. Normal echotexture and cortex. No suspicious masses, stones, or hydronephrosis. Vasculature: Proximal abdominal aorta and IVC are normal. IMPRESSION: Unremarkable right upper quadrant ultrasound except for hepatic steatosis. Dictated by Justin Branch MD @ Jun 21 2020 2:02PM Signed by Dr. Justin Branch @ Jun 21 2020 2:07PM
[2020-06-22] MEDS: Nicotine 14 MG/24 Hr Patch TRDERM SCH ×2 (03:36→10:23)
[2020-06-22] MEDS: LORazepam 2 MG/ML SDV IVPUSH PRN ×5 (03:37→22:12)
[2020-06-22] MEDS: Ondansetron 4 MG/2 ML SDV IVPUSH PRN ×2 (03:38→22:13)
[2020-06-22 06:54] LABS: BLOOD UREA NITROGEN,BUN 6 mg/dL (7.0-18.0); CARBON DIOXIDE,CO2 23.4 mmol/L (21.0-32.0); CHLORIDE,CL 104 mmol/L (98-107); GLUCOSE RANDOM 97 mg/dL (74-106); POTASSIUM,K 2.9 mmol/L (3.5-5.1); SODIUM,NA 141 mmol/L (136-148)
[2020-06-22] MEDS: Sodium Chloride 0.9% 1,000 ML IV SCH ×2 (07:53→10:07)
[2020-06-22] MEDS: Folic Acid 50 MG/10 ML MDV IV SCH (10:09)
[2020-06-22] MEDS: Pantoprazole 40 MG in Sodium Chloride 0.9% 10 ML IV SCH (10:13)
[2020-06-22] MEDS: Thiamine 100 MG in Sodium Chloride 0.9% 100 ML IV SCH (10:21)
[2020-06-22] MEDS ORDERED: Potassium Chloride 20 MEQ Tab.ER PO ONE ×2 (13:46→19:00)
[2020-06-22] MEDS ORDERED: Sodium Chloride 0.9% with KCl 1,000 ML IV SCH (14:00)
--- NOTE | 2020-06-22 14:39 | PCM.PN ---
- General Info Date of Service: 06/22/20 - Review of Systems Systems Review Comment:: reports nausea, and shakes - Patient Data Vitals - Most Recent: Last Vital Signs Temp 36.9 C 06/22/20 13:11 Pulse 92 06/22/20 13:11 Resp 14 06/22/20 13:11 BP 134/86 06/22/20 13:11 Pulse Ox 95 06/22/20 13:11 Weight - Most Recent: 77.111 kg I&O - Last 24 Hours: Intake & Output 06/21/20 06/22/20 06/22/20 22:59 06:59 14:59 Intake Total 480 1810 Output Total 1000 Balance 480 810 Lab Results Last 24 Hours: Laboratory Results - last 24 hr 06/22/20 06/22/20 Range/Units 05:45 05:45 WBC 8.77 (4.0-11.0) K/uL RBC 4.08 L (4.50-5.90) M/uL Hgb 12.1 L (13.0-17.0) g/dL Hct 36.8 L (38.0-50.0) % MCV 90.2 (80.0-98.0) fL MCH 29.7 (27.0-32.0) pg MCHC 32.9 (31.0-37.0) g/dL RDW Std Deviation 49.0 (28.0-62.0) fl RDW Coeff of Muna 15 (11.0-15.0) % Plt Count 155 (150-400) K/uL MPV 9.70 (7.40-12.00) fL Neut % (Auto) 57.2 (48.0-80.0) % Lymph % (Auto) 29.9 (16.0-40.0) % [place] % (Auto) 10.3 (0.0-15.0) % Eos % (Auto) 1.5 (0.0-7.0) % Baso % (Auto) 1.1 (0.0-1.5) % Neut # (Auto) 5.0 (1.4-5.7) K/uL Lymph # (Auto) 2.6 H (0.6-2.4) K/uL [place] # (Auto) 0.9 H (0.0-0.8) K/uL Eos # (Auto) 0.1 (0.0-0.7) K/uL Baso # (Auto) 0.1 (0.0-0.1) K/uL Nucleated RBC % 0.0 /100WBC Nucleated RBCs # 0 K/uL Sodium 141 (136-148) mmol/L Potassium 2.9 L (3.5-5.1) mmol/L Chloride 104 (98-107) mmol/L Carbon Dioxide 23.4 (21.0-32.0) mmol/L BUN 6 L (7.0-18.0) mg/dL Creatinine 0.8 (0.8-1.3) mg/dL Est Cr Clr Drug Dosing 108.99 mL/min Estimated GFR (MDRD) > 60.0 ml/min Glucose 97 (74-106) mg/dL Calcium 8.4 L (8.5-10.1) mg/dL Phosphorus 3.6 (2.6-4.7) mg/dL Magnesium 2.0 (1.8-2.4) mg/dL Total Bilirubin 0.5 (0.2-1.0) mg/dL AST 119 H (15-37) IU/L ALT 124 H (14-63) IU/L Alkaline Phosphatase 65 (46-116) U/L Total Protein 6.4 (6.4-8.2) g/dL Albumin 3.3 L (3.4-5.0) g/dL Globulin 3.1 (2.6-4.0) g/dL Albumin/Globulin Ratio 1.1 (0.9-1.6) Jin Results Last 24 Hours: Microbiology 06/21/20 17:28 C. difficile Antigen & Toxins A,B - Final Stool / Feces Med Orders - Current: Current Medications Folic Acid (Folic Acid) 1 mg IV DAILY [facility] Last Admin: 06/22/20 10:09 Dose: 1 mg Documented by: Sodium Chloride (Normal Saline) 1,000 mls @ 125 mls/hr IV Q8H [facility] Last Admin: 06/22/20 10:07 Dose: 125 mls/hr Documented by: Pantoprazole Sodium 40 mg/ (Sodium Chloride) 10 mls @ 300 mls/hr IV Q24H [facility] Last Admin: 06/22/20 10:13 Dose: 300 mls/hr Documented by: Thiamine HCl 100 mg/ Sodium (Chloride) 101 mls @ 404 mls/hr IV DAILY [facility] Last Admin: 06/22/20 10:21 Dose: 404 mls/hr Documented by: Potassium Chloride/Sodium Chloride (Normal Saline With 40 Meq Kcl) 1,000 mls @ 150 mls/hr IV ASDIRECTED [facility] Stop: 06/22/20 20:39 Lorazepam (Ativan) 0 mg IVPUSH Q4H PRN; Protocol PRN Reason: CIWAA Last Admin: 06/22/20 13:55 Dose: 1 mg Documented by: Nicotine (Habitrol) 14 mg TRDERM DAILY [facility] Last Admin: 06/22/20 10:23 Dose: 14 mg Documented by: Ondansetron HCl (Zofran) 4 mg IVPUSH Q4H PRN PRN Reason: Nausea Last Admin: 06/22/20 03:38 Dose: 4 mg Documented by: Promethazine HCl (Phenergan) 25 mg IM Q6H PRN PRN Reason: Nausea Last Admin: 06/20/20 15:27 Dose: 25 mg Documented by: Sodium Chloride (Saline Flush) 2.5 ml FLUSH ASDIRECTED PRN PRN Reason: Keep Vein Open Discontinued Medications Fentanyl (Sublimaze) Confirm Administered Dose 100 mcg .ROUTE .STK-MED ONE Stop: 06/20/20 13:09 Last Admin: 06/20/20 13:26 Dose: Not Given Documented by: Folic Acid (Folic Acid) 1 mg SUBCUT DAILY [facility] Last Admin: 06/21/20 08:45 Dose: 1 mg Documented by: Multivitamins/Minerals 10 ml/Thiamine HCl 100 mg/ Folic Acid 1 mg/ Sodium Chloride 1,011.2 mls @ 999 mls/hr IV ONETIME ONE Stop: 06/20/20 11:19 Last Admin: 06/20/20 10:44 Dose: 999 mls/hr Documented by: Pantoprazole Sodium 40 mg/ (Sodium Chloride) 20 mls @ 420 mls/hr IVPUSH ONETIME ONE Stop: 06/20/20 13:00 Last Admin: 06/20/20 13:06 Dose: 420 mls/hr Documented by: Propofol (Diprivan 100 Ml) Confirm Administered Dose 100 mls @ as directed .ROUTE .STK-MED ONE Stop: 06/20/20 13:10 Last Admin: 06/20/20 13:26 Dose: Not Given Documented by: Potassium Chloride/Sodium Chloride (Normal Saline With 40 Meq Kcl) 1,000 mls @ 150 mls/hr IV ONETIME ONE Stop: 06/21/20 14:31 Last Admin: 06/21/20 11:30 Dose: Not Given Documented by: Sodium Chloride (Normal Saline) 500 mls @ 999 mls/hr IV .BOLUS SOBIA Last Admin: 06/21/20 10:56 Dose: 999 mls/hr Documented by: Potassium Chloride/Sodium Chloride (Normal Saline With 40 Meq Kcl) 1,000 mls @ 150 mls/hr IV ONETIME ONE Stop: 06/21/20 17:39 Last Admin: 06/21/20 10:53 Dose: 150 mls/hr Documented by: Lorazepam (Ativan) 1 mg IVPUSH ONETIME ONE Stop: 06/20/20 12:19 Last Admin: 06/20/20 12:34 Dose: 1 mg Documented by: Midazolam HCl (Versed 1 Mg/Ml) Confirm Administered Dose 2 mg .ROUTE .STK-MED ONE Stop: 06/20/20 13:09 Last Admin: 06/20/20 13:27 Dose: Not Given Documented by: Ondansetron HCl (Zofran) 4 mg IVPUSH ONETIME ONE Stop: 06/20/20 10:52 Last Admin: 06/20/20 11:30 Dose: 4 mg Documented by: Ondansetron HCl (Zofran) 4 mg IVPUSH ONETIME ONE Stop: 06/20/20 12:19 Last Admin: 06/20/20 12:34 Dose: 4 mg Documented by: Pantoprazole Sodium (Protonix Iv) 40 mg IV Q24H [facility] Last Admin: 06/20/20 13:06 Dose: Not Given Documented by: Potassium Chloride (Klor-Con M20) 40 meq PO ONETIME ONE Stop: 06/22/20 13:47 Sodium Chloride (Saline Flush) 10 ml FLUSH ASDIRECTED PRN PRN Reason: Keep Vein Open Last Admin: 06/20/20 10:45 Dose: 10 ml Documented by: Sodium Chloride (Saline Flush) 2.5 ml FLUSH ASDIRECTED PRN PRN Reason: Keep Vein Open Last Admin: 06/20/20 10:45 Dose: 2.5 ml Documented by: - Exam General: Alert, Oriented Neck: Supple Lungs: Clear to Auscultation, Normal Respiratory Effort Cardiovascular: Regular Rate, Regular Rhythm GI/Abdominal Exam: Normal Bowel Sounds, Soft, Non-Tender Extremities: Non-Tender, No Pedal Edema Skin: Warm, Dry, Intact Neurological: No New Focal Deficit, Normal Speech, Normal Tone, Strength Equal Bilateral, Sensation Intact, Cranial Nerves Intact Sepsis Event Note - Evaluation Sepsis Screening Result: No Definite Risk - Focused Exam Vital Signs: Vital Signs Temp Pulse Resp BP Pulse Ox 06/22/20 13:11 36.9 C 92 14 134/86 95 06/22/20 10:15 36.9 C 110 H 18 137/84 95 06/22/20 04:00 37.3 C 115 H 18 118/55 L 94 L - Problem List Review Problem List Initiated/Reviewed/Updated: Yes - My Orders Last 24 Hours: My Active Orders 06/22/20 00:45 Nicotine [Habitrol] 14 mg TRDERM DAILY 06/22/20 08:21 Folic Acid 1 mg IV DAILY 06/22/20 14:00 Sodium Chloride 0.9% with KCl [Normal Saline with 40 mEq KCl] 1,000 ml IV ASDIRECTED 06/23/20 05:11 CBC WITH AUTO DIFF [HEME] AM COMPREHENSIVE METABOLIC PN,CMP [CHEM] AM MAGNESIUM [CHEM] AM PHOSPHORUS [CHEM] AM - Plan Plan:: This 35-year-old male admitted with alcohol intoxication for alcohol detox along with nausea and vomiting 1. Alcohol detox - CIWAA assessment every 4 hours - requiring Ativan protocol per CIWAA this morning - Thiamine and folic acid supplementation daily - replace Potassium IV and PO this morning, Mg and phos stable. 2. Nausea/vomiting - increase diet as tolerated - Zofran and Phenergan as needed nausea - Lipase normal - Protonix 40 mg IV daily VTE prophylaxis: SCDs and ambulation Dispo: 2-3 days
[2020-06-23] MEDS: LORazepam 2 MG/ML SDV IVPUSH PRN ×4 (03:02→22:58)
[2020-06-23] MEDS: Ondansetron 4 MG/2 ML SDV IVPUSH PRN ×2 (03:03→20:44)
[2020-06-23] MEDS: Sodium Chloride 0.9% 1,000 ML IV SCH ×6 (03:04→23:03)
[2020-06-23 06:47] LABS: BLOOD UREA NITROGEN,BUN 7 mg/dL (7.0-18.0); CARBON DIOXIDE,CO2 24.2 mmol/L (21.0-32.0); CHLORIDE,CL 98 mmol/L (98-107); GLUCOSE RANDOM 82 mg/dL (74-106); POTASSIUM,K 3.5 mmol/L (3.5-5.1); SODIUM,NA 133 mmol/L (136-148)
[2020-06-23] MEDS: Pantoprazole 40 MG in Sodium Chloride 0.9% 10 ML IV SCH (08:48)
[2020-06-23] MEDS: Thiamine 100 MG in Sodium Chloride 0.9% 100 ML IV SCH (08:51)
[2020-06-23] MEDS: Folic Acid 50 MG/10 ML MDV IV SCH (08:51)
[2020-06-23] MEDS: Nicotine 14 MG/24 Hr Patch TRDERM SCH (08:59)
[2020-06-23] MEDS ORDERED: Potassium Chloride 20 MEQ Tab.ER PO ONE (11:47)
[2020-06-23] MEDS ORDERED: Magnesium Sulfate/Water 2 GM/50 ML Premix Bag IV ONE (11:48)
--- NOTE | 2020-06-23 11:52 | PCM.PN ---
- General Info Date of Service: 06/23/20 - Review of Systems Systems Review Comment:: patient reports some nausea and tremors - Patient Data Vitals - Most Recent: Last Vital Signs Temp 37.0 C 06/23/20 08:30 Pulse 68 06/23/20 08:30 Resp 13 06/23/20 08:30 BP 148/85 H 06/23/20 08:30 Pulse Ox 97 06/23/20 08:30 Weight - Most Recent: 77.111 kg I&O - Last 24 Hours: Intake & Output 06/22/20 06/23/20 06/23/20 22:59 06:59 14:59 Intake Total 2307 Output Total 900 1450 Balance -900 857 Lab Results Last 24 Hours: Laboratory Results - last 24 hr 06/23/20 06/23/20 Range/Units 05:55 05:55 WBC 9.15 (4.0-11.0) K/uL RBC 4.02 L (4.50-5.90) M/uL Hgb 12.0 L (13.0-17.0) g/dL Hct 36.1 L (38.0-50.0) % MCV 89.8 (80.0-98.0) fL MCH 29.9 (27.0-32.0) pg MCHC 33.2 (31.0-37.0) g/dL RDW Std Deviation 48.3 (28.0-62.0) fl RDW Coeff of Muna 15 (11.0-15.0) % Plt Count 166 (150-400) K/uL MPV 9.60 (7.40-12.00) fL Neut % (Auto) 57.8 (48.0-80.0) % Lymph % (Auto) 24.9 (16.0-40.0) % [place] % (Auto) 13.6 (0.0-15.0) % Eos % (Auto) 2.5 (0.0-7.0) % Baso % (Auto) 1.2 (0.0-1.5) % Neut # (Auto) 5.3 (1.4-5.7) K/uL Lymph # (Auto) 2.3 (0.6-2.4) K/uL [place] # (Auto) 1.2 H (0.0-0.8) K/uL Eos # (Auto) 0.2 (0.0-0.7) K/uL Baso # (Auto) 0.1 (0.0-0.1) K/uL Nucleated RBC % 0.0 /100WBC Nucleated RBCs # 0 K/uL Sodium 133 L (136-148) mmol/L Potassium 3.5 (3.5-5.1) mmol/L Chloride 98 (98-107) mmol/L Carbon Dioxide 24.2 (21.0-32.0) mmol/L BUN 7 (7.0-18.0) mg/dL Creatinine 0.7 L (0.8-1.3) mg/dL Est Cr Clr Drug Dosing 124.56 mL/min Estimated GFR (MDRD) > 60.0 ml/min Glucose 82 (74-106) mg/dL Calcium 8.7 (8.5-10.1) mg/dL Phosphorus 3.4 (2.6-4.7) mg/dL Magnesium 1.7 L (1.8-2.4) mg/dL Total Bilirubin 1.0 (0.2-1.0) mg/dL AST 83 H (15-37) IU/L ALT 110 H (14-63) IU/L Alkaline Phosphatase 66 (46-116) U/L Total Protein 6.5 (6.4-8.2) g/dL Albumin 3.3 L (3.4-5.0) g/dL Globulin 3.2 (2.6-4.0) g/dL Albumin/Globulin Ratio 1.0 (0.9-1.6) Med Orders - Current: Current Medications Folic Acid (Folic Acid) 1 mg IV DAILY [facility] Last Admin: 06/23/20 08:51 Dose: 1 mg Documented by: Sodium Chloride (Normal Saline) 1,000 mls @ 125 mls/hr IV Q8H [facility] Last Admin: 06/23/20 07:34 Dose: Not Given Documented by: Pantoprazole Sodium 40 mg/ (Sodium Chloride) 10 mls @ 300 mls/hr IV Q24H [facility] Last Admin: 06/23/20 08:48 Dose: 300 mls/hr Documented by: Thiamine HCl 100 mg/ Sodium (Chloride) 101 mls @ 404 mls/hr IV DAILY [facility] Last Admin: 06/23/20 08:51 Dose: 404 mls/hr Documented by: Lorazepam (Ativan) 0 mg IVPUSH Q4H PRN; Protocol PRN Reason: CIWAA Last Admin: 06/23/20 07:13 Dose: 1 mg Documented by: Magnesium Sulfate (Magnesium Sulfate In Water Premix) 2 gm IV ONETIME ONE Stop: 06/23/20 11:49 Nicotine (Habitrol) 14 mg TRDERM DAILY [facility] Last Admin: 06/23/20 08:59 Dose: 14 mg Documented by: Ondansetron HCl (Zofran) 4 mg IVPUSH Q4H PRN PRN Reason: Nausea Last Admin: 06/23/20 03:03 Dose: 4 mg Documented by: Potassium Chloride (Klor-Con M20) 40 meq PO ONETIME ONE Stop: 06/23/20 11:48 Promethazine HCl (Phenergan) 25 mg IM Q6H PRN PRN Reason: Nausea Last Admin: 06/20/20 15:27 Dose: 25 mg Documented by: Sodium Chloride (Saline Flush) 2.5 ml FLUSH ASDIRECTED PRN PRN Reason: Keep Vein Open Discontinued Medications Fentanyl (Sublimaze) Confirm Administered Dose 100 mcg .ROUTE .STK-MED ONE Stop: 06/20/20 13:09 Last Admin: 06/20/20 13:26 Dose: Not Given Documented by: Folic Acid (Folic Acid) 1 mg SUBCUT DAILY [facility] Last Admin: 06/21/20 08:45 Dose: 1 mg Documented by: Multivitamins/Minerals 10 ml/Thiamine HCl 100 mg/ Folic Acid 1 mg/ Sodium Chloride 1,011.2 mls @ 999 mls/hr IV ONETIME ONE Stop: 06/20/20 11:19 Last Admin: 06/20/20 10:44 Dose: 999 mls/hr Documented by: Pantoprazole Sodium 40 mg/ (Sodium Chloride) 20 mls @ 420 mls/hr IVPUSH ONETIME ONE Stop: 06/20/20 13:00 Last Admin: 06/20/20 13:06 Dose: 420 mls/hr Documented by: Propofol (Diprivan 100 Ml) Confirm Administered Dose 100 mls @ as directed .ROUTE .STK-MED ONE Stop: 06/20/20 13:10 Last Admin: 06/20/20 13:26 Dose: Not Given Documented by: Potassium Chloride/Sodium Chloride (Normal Saline With 40 Meq Kcl) 1,000 mls @ 150 mls/hr IV ONETIME ONE Stop: 06/21/20 14:31 Last Admin: 06/21/20 11:30 Dose: Not Given Documented by: Sodium Chloride (Normal Saline) 500 mls @ 999 mls/hr IV .BOLUS [facility] Last Admin: 06/21/20 10:56 Dose: 999 mls/hr Documented by: Potassium Chloride/Sodium Chloride (Normal Saline With 40 Meq Kcl) 1,000 mls @ 150 mls/hr IV ONETIME ONE Stop: 06/21/20 17:39 Last Admin: 06/21/20 10:53 Dose: 150 mls/hr Documented by: Potassium Chloride/Sodium Chloride (Normal Saline With 40 Meq Kcl) 1,000 mls @ 150 mls/hr IV ASDIRECTED [facility] Stop: 06/22/20 20:39 Last Admin: 06/22/20 20:01 Dose: 150 mls/hr Documented by: Lorazepam (Ativan) 1 mg IVPUSH ONETIME ONE Stop: 06/20/20 12:19 Last Admin: 06/20/20 12:34 Dose: 1 mg Documented by: Midazolam HCl (Versed 1 Mg/Ml) Confirm Administered Dose 2 mg .ROUTE .STK-MED ONE Stop: 06/20/20 13:09 Last Admin: 06/20/20 13:27 Dose: Not Given Documented by: Ondansetron HCl (Zofran) 4 mg IVPUSH ONETIME ONE Stop: 06/20/20 10:52 Last Admin: 06/20/20 11:30 Dose: 4 mg Documented by: Ondansetron HCl (Zofran) 4 mg IVPUSH ONETIME ONE Stop: 06/20/20 12:19 Last Admin: 06/20/20 12:34 Dose: 4 mg Documented by: Pantoprazole Sodium (Protonix Iv) 40 mg IV Q24H [facility] Last Admin: 06/20/20 13:06 Dose: Not Given Documented by: Potassium Chloride (Klor-Con M20) 40 meq PO ONETIME ONE Stop: 06/22/20 13:47 Last Admin: 06/22/20 18:30 Dose: 40 meq Documented by: Potassium Chloride (Klor-Con M20) 40 meq PO ONETIME ONE Stop: 06/22/20 19:01 Last Admin: 06/22/20 18:55 Dose: 40 meq Documented by: Sodium Chloride (Saline Flush) 10 ml FLUSH ASDIRECTED PRN PRN Reason: Keep Vein Open Last Admin: 06/20/20 10:45 Dose: 10 ml Documented by: Sodium Chloride (Saline Flush) 2.5 ml FLUSH ASDIRECTED PRN PRN Reason: Keep Vein Open Last Admin: 06/20/20 10:45 Dose: 2.5 ml Documented by: - Exam General: Alert, Oriented Lungs: Clear to Auscultation, Normal Respiratory Effort GI/Abdominal Exam: Normal Bowel Sounds, Soft, Non-Tender, No Distention Extremities: Normal Inspection, Non-Tender, No Pedal Edema Skin: Warm, Dry, Intact Neurological: No New Focal Deficit Sepsis Event Note - Evaluation Sepsis Screening Result: No Definite Risk - Focused Exam Vital Signs: Vital Signs Temp Pulse Resp BP BP Pulse Ox 06/23/20 08:30 37.0 C 68 13 148/85 H 97 06/23/20 04:00 36.9 C 81 16 139/84 95 06/22/20 23:52 37.2 C 83 17 153/76 H 97 - Problem List Review Problem List Initiated/Reviewed/Updated: Yes - My Orders Last 24 Hours: My Active Orders 06/23/20 11:47 Potassium Chloride [Klor-Con M20] 40 meq PO ONETIME ONE 06/23/20 11:48 Magnesium Sulfate/Water [Magnesium Sulfate in Water Premix] 2 gm IV ONETIME ONE 06/24/20 05:11 CBC WITH AUTO DIFF [HEME] AM COMPREHENSIVE METABOLIC PN,CMP [CHEM] AM MAGNESIUM [CHEM] AM PHOSPHORUS [CHEM] AM - Plan Plan:: This 35-year-old male admitted with alcohol intoxication for alcohol detox along with nausea and vomiting 1. Alcohol detox - CIWAA assessment every 4 hours - requiring Ativan per CIWAA - Thiamine and folic acid supplementation daily - replace Potassium and magnesium 2. Nausea/vomiting - increase diet as tolerated - Zofran and Phenergan as needed nausea - Lipase normal - Protonix 40 mg IV daily VTE prophylaxis: SCDs and ambulation Dispo: 2-3 days
[2020-06-23] MEDS ORDERED: Magnesium Sulfate/Water 2 GM/50 ML BAG IV ONE (12:15)
[2020-06-24] MEDS: Sodium Chloride 0.9% 1,000 ML IV SCH ×3 (05:43→22:35)
[2020-06-24 06:53] LABS: BLOOD UREA NITROGEN,BUN 11 mg/dL (7.0-18.0); CARBON DIOXIDE,CO2 22.4 mmol/L (21.0-32.0); CHLORIDE,CL 101 mmol/L (98-107); GLUCOSE RANDOM 116 mg/dL (74-106); POTASSIUM,K 3.7 mmol/L (3.5-5.1); SODIUM,NA 133 mmol/L (136-148)
[2020-06-24] MEDS: Ondansetron 4 MG/2 ML SDV IVPUSH PRN ×2 (08:03→19:00)
[2020-06-24] MEDS: LORazepam 2 MG/ML SDV IVPUSH PRN (08:05)
[2020-06-24] MEDS: Folic Acid 50 MG/10 ML MDV IV SCH (09:33)
[2020-06-24] MEDS: Pantoprazole 40 MG in Sodium Chloride 0.9% 10 ML IV SCH (09:34)
[2020-06-24] MEDS: Nicotine 14 MG/24 Hr Patch TRDERM SCH (09:36)
[2020-06-24] MEDS: Thiamine 100 MG in Sodium Chloride 0.9% 100 ML IV SCH (10:22)
[2020-06-24] MEDS ORDERED: LORazepam 0.5 MG Tab PO PRN (11:26)
--- NOTE | 2020-06-24 11:40 | PCM.PN ---
- General Info Date of Service: 06/24/20 Subjective Update: Had 2 bouts of diarrhea yesterday. Reports appetite improving. - Patient Data Vitals - Most Recent: Last Vital Signs Temp 36.7 C 06/24/20 08:00 Pulse 83 06/24/20 08:00 Resp 18 06/24/20 08:00 BP 155/100 H 06/24/20 08:00 Pulse Ox 97 06/24/20 08:00 Weight - Most Recent: 77.111 kg I&O - Last 24 Hours: Intake & Output 06/23/20 06/24/20 06/24/20 22:59 06:59 14:59 Intake Total 300 1738 Output Total 1425 350 Balance -1125 1388 Lab Results Last 24 Hours: Laboratory Results - last 24 hr 06/24/20 06/24/20 Range/Units 05:45 05:45 WBC 7.28 (4.0-11.0) K/uL RBC 4.02 L (4.50-5.90) M/uL Hgb 11.8 L (13.0-17.0) g/dL Hct 35.9 L (38.0-50.0) % MCV 89.3 (80.0-98.0) fL MCH 29.4 (27.0-32.0) pg MCHC 32.9 (31.0-37.0) g/dL RDW Std Deviation 47.4 (28.0-62.0) fl RDW Coeff of Muna 15 (11.0-15.0) % Plt Count 173 (150-400) K/uL MPV 9.40 (7.40-12.00) fL Neut % (Auto) 50.8 (48.0-80.0) % Lymph % (Auto) 31.9 (16.0-40.0) % [place] % (Auto) 12.6 (0.0-15.0) % Eos % (Auto) 3.3 (0.0-7.0) % Baso % (Auto) 1.4 (0.0-1.5) % Neut # (Auto) 3.7 (1.4-5.7) K/uL Lymph # (Auto) 2.3 (0.6-2.4) K/uL [place] # (Auto) 0.9 H (0.0-0.8) K/uL Eos # (Auto) 0.2 (0.0-0.7) K/uL Baso # (Auto) 0.1 (0.0-0.1) K/uL Nucleated RBC % 0.0 /100WBC Nucleated RBCs # 0 K/uL Sodium 133 L (136-148) mmol/L Potassium 3.7 (3.5-5.1) mmol/L Chloride 101 (98-107) mmol/L Carbon Dioxide 22.4 (21.0-32.0) mmol/L BUN 11 (7.0-18.0) mg/dL Creatinine 0.7 L (0.8-1.3) mg/dL Est Cr Clr Drug Dosing 124.56 mL/min Estimated GFR (MDRD) > 60.0 ml/min Glucose 116 H (74-106) mg/dL Calcium 8.5 (8.5-10.1) mg/dL Phosphorus 3.3 (2.6-4.7) mg/dL Magnesium 2.1 (1.8-2.4) mg/dL Total Bilirubin 0.7 (0.2-1.0) mg/dL AST 65 H (15-37) IU/L ALT 99 H (14-63) IU/L Alkaline Phosphatase 65 (46-116) U/L Total Protein 6.3 L (6.4-8.2) g/dL Albumin 3.1 L (3.4-5.0) g/dL Globulin 3.2 (2.6-4.0) g/dL Albumin/Globulin Ratio 1.0 (0.9-1.6) Med Orders - Current: Current Medications Folic Acid (Folic Acid) 1 mg IV DAILY [facility] Last Admin: 06/24/20 09:33 Dose: 1 mg Documented by: Sodium Chloride (Normal Saline) 1,000 mls @ 125 mls/hr IV Q8H [facility] Last Admin: 06/24/20 05:43 Dose: 125 mls/hr Documented by: Pantoprazole Sodium 40 mg/ (Sodium Chloride) 10 mls @ 300 mls/hr IV Q24H [facility] Last Admin: 06/24/20 09:34 Dose: 300 mls/hr Documented by: Thiamine HCl 100 mg/ Sodium (Chloride) 101 mls @ 404 mls/hr IV DAILY [facility] Last Admin: 06/24/20 10:22 Dose: 404 mls/hr Documented by: Lorazepam (Ativan) 0 mg PO Q4H PRN; Protocol PRN Reason: CIWAA Nicotine (Habitrol) 14 mg TRDERM DAILY [facility] Last Admin: 06/24/20 09:36 Dose: 14 mg Documented by: Ondansetron HCl (Zofran) 4 mg IVPUSH Q4H PRN PRN Reason: Nausea Last Admin: 06/24/20 08:03 Dose: 4 mg Documented by: Promethazine HCl (Phenergan) 25 mg IM Q6H PRN PRN Reason: Nausea Last Admin: 06/20/20 15:27 Dose: 25 mg Documented by: Sodium Chloride (Saline Flush) 2.5 ml FLUSH ASDIRECTED PRN PRN Reason: Keep Vein Open Discontinued Medications Fentanyl (Sublimaze) Confirm Administered Dose 100 mcg .ROUTE .STK-MED ONE Stop: 06/20/20 13:09 Last Admin: 06/20/20 13:26 Dose: Not Given Documented by: Folic Acid (Folic Acid) 1 mg SUBCUT DAILY [facility] Last Admin: 06/21/20 08:45 Dose: 1 mg Documented by: Multivitamins/Minerals 10 ml/Thiamine HCl 100 mg/ Folic Acid 1 mg/ Sodium Chloride 1,011.2 mls @ 999 mls/hr IV ONETIME ONE Stop: 06/20/20 11:19 Last Admin: 06/20/20 10:44 Dose: 999 mls/hr Documented by: Pantoprazole Sodium 40 mg/ (Sodium Chloride) 20 mls @ 420 mls/hr IVPUSH ONETIME ONE Stop: 06/20/20 13:00 Last Admin: 06/20/20 13:06 Dose: 420 mls/hr Documented by: Propofol (Diprivan 100 Ml) Confirm Administered Dose 100 mls @ as directed .ROUTE .STK-MED ONE Stop: 06/20/20 13:10 Last Admin: 06/20/20 13:26 Dose: Not Given Documented by: Potassium Chloride/Sodium Chloride (Normal Saline With 40 Meq Kcl) 1,000 mls @ 150 mls/hr IV ONETIME ONE Stop: 06/21/20 14:31 Last Admin: 06/21/20 11:30 Dose: Not Given Documented by: Sodium Chloride (Normal Saline) 500 mls @ 999 mls/hr IV .BOLUS [facility] Last Admin: 06/21/20 10:56 Dose: 999 mls/hr Documented by: Potassium Chloride/Sodium Chloride (Normal Saline With 40 Meq Kcl) 1,000 mls @ 150 mls/hr IV ONETIME ONE Stop: 06/21/20 17:39 Last Admin: 06/21/20 10:53 Dose: 150 mls/hr Documented by: Potassium Chloride/Sodium Chloride (Normal Saline With 40 Meq Kcl) 1,000 mls @ 150 mls/hr IV ASDIRECTED [facility] Stop: 06/22/20 20:39 Last Admin: 06/22/20 20:01 Dose: 150 mls/hr Documented by: Magnesium Sulfate (Magnesium Sulfate In Water Premix) 2 gm in 50 mls @ 50 mls/hr IV ONETIME ONE Stop: 06/23/20 13:14 Last Admin: 06/23/20 12:21 Dose: 50 mls/hr Documented by: Lorazepam (Ativan) 1 mg IVPUSH ONETIME ONE Stop: 06/20/20 12:19 Last Admin: 06/20/20 12:34 Dose: 1 mg Documented by: Lorazepam (Ativan) 0 mg IVPUSH Q4H PRN; Protocol PRN Reason: CIWAA Last Admin: 06/24/20 08:05 Dose: 1 mg Documented by: Midazolam HCl (Versed 1 Mg/Ml) Confirm Administered Dose 2 mg .ROUTE .STK-MED ONE Stop: 06/20/20 13:09 Last Admin: 06/20/20 13:27 Dose: Not Given Documented by: Ondansetron HCl (Zofran) 4 mg IVPUSH ONETIME ONE Stop: 06/20/20 10:52 Last Admin: 06/20/20 11:30 Dose: 4 mg Documented by: Ondansetron HCl (Zofran) 4 mg IVPUSH ONETIME ONE Stop: 06/20/20 12:19 Last Admin: 06/20/20 12:34 Dose: 4 mg Documented by: Pantoprazole Sodium (Protonix Iv) 40 mg IV Q24H [facility] Last Admin: 06/20/20 13:06 Dose: Not Given Documented by: Potassium Chloride (Klor-Con M20) 40 meq PO ONETIME ONE Stop: 06/22/20 13:47 Last Admin: 06/22/20 18:30 Dose: 40 meq Documented by: Potassium Chloride (Klor-Con M20) 40 meq PO ONETIME ONE Stop: 06/22/20 19:01 Last Admin: 06/22/20 18:55 Dose: 40 meq Documented by: Potassium Chloride (Klor-Con M20) 40 meq PO ONETIME ONE Stop: 06/23/20 11:48 Last Admin: 06/23/20 12:20 Dose: 40 meq Documented by: Sodium Chloride (Saline Flush) 10 ml FLUSH ASDIRECTED PRN PRN Reason: Keep Vein Open Last Admin: 06/20/20 10:45 Dose: 10 ml Documented by: Sodium Chloride (Saline Flush) 2.5 ml FLUSH ASDIRECTED PRN PRN Reason: Keep Vein Open Last Admin: 06/20/20 10:45 Dose: 2.5 ml Documented by: - Exam General: Alert, Oriented, Cooperative, No Acute Distress Lungs: Clear to Auscultation, Normal Respiratory Effort Cardiovascular: Regular Rate, Regular Rhythm GI/Abdominal Exam: Normal Bowel Sounds, Soft, Non-Tender, No Distention Extremities: Normal Inspection, No Pedal Edema Sepsis Event Note - Evaluation Sepsis Screening Result: No Definite Risk - Focused Exam Vital Signs: Vital Signs Temp Pulse Resp BP BP Pulse Ox 06/24/20 08:00 36.7 C 83 18 163/95 H 155/100 H 97 06/24/20 04:50 36.6 C 115 H 14 154/89 H 98 06/24/20 00:26 36.9 C 102 H 14 127/82 96 - Problem List & Annotations (1) Alcohol intoxication SNOMED Code(s): 73933133 Code(s): F10.929 - ALCOHOL USE, UNSPECIFIED WITH INTOXICATION, UNSPECIFIED Status: Acute Current Visit: Yes Qualifiers: Complication of substance-induced condition: with unspecified complication Qualified Code(s): F10.929 - Alcohol use, unspecified with intoxication, unspecified - Problem List Review Problem List Initiated/Reviewed/Updated: Yes - My Orders Last 24 Hours: My Active Orders 06/24/20 11:26 LORazepam [Ativan] See Protocol PO Q4H PRN - Plan Plan:: Assessment and Plan: 1. Alcohol detox: - PO Ativan per CIIDA protocol, thiamine and folic acid. 2. Nausea/vomiting: - Advance diet as tolerated. Continue Zofran and Phenergan prn nausea. 3. DVT prophylaxis: SCDs and ambulation.
[2020-06-24] MEDS: Melatonin 3 MG Tab PO PRN (19:00)
[2020-06-25] MEDS: Ondansetron 4 MG/2 ML SDV IVPUSH PRN ×4 (04:16→20:47)
[2020-06-25] MEDS: Sodium Chloride 0.9% 1,000 ML IV SCH ×3 (06:43→22:45)
[2020-06-25 07:00] LABS: BLOOD UREA NITROGEN,BUN 6 mg/dL (7.0-18.0); CARBON DIOXIDE,CO2 22.8 mmol/L (21.0-32.0); CHLORIDE,CL 103 mmol/L (98-107); GLUCOSE RANDOM 119 mg/dL (74-106); POTASSIUM,K 3.5 mmol/L (3.5-5.1); SODIUM,NA 137 mmol/L (136-148)
[2020-06-25] MEDS: Folic Acid 50 MG/10 ML MDV IV SCH (10:24)
[2020-06-25] MEDS: Nicotine 14 MG/24 Hr Patch TRDERM SCH (10:24)
[2020-06-25] MEDS: Pantoprazole 40 MG in Sodium Chloride 0.9% 10 ML IV SCH (10:27)
[2020-06-25] MEDS: Thiamine 100 MG in Sodium Chloride 0.9% 100 ML IV SCH (10:33)
[2020-06-25] MEDS: Vancomycin 25 MG/ML Compounding Kit PO SCH ×2 (13:03→17:32)
--- NOTE | 2020-06-25 15:04 | PCM.PN ---
<Shaq Newsome - Last Filed: 06/25/20 15:02> - General Info Date of Service: 06/25/20 Subjective Update: Reports some diarrhea yesterday and vomited once. Would like to try and advance diet today. - Patient Data Vitals - Most Recent: Last Vital Signs Temp 36.2 C 06/25/20 11:51 Pulse 78 06/25/20 11:51 Resp 16 06/25/20 11:51 BP 148/91 H 06/25/20 11:51 Pulse Ox 97 06/25/20 11:51 Weight - Most Recent: 77.111 kg I&O - Last 24 Hours: Intake & Output 06/25/20 06/25/20 06/25/20 06:59 14:59 22:59 Intake Total 2908 Output Total 2550 Balance 358 Lab Results Last 24 Hours: Laboratory Results - last 24 hr 06/25/20 06/25/20 Range/Units 05:45 05:45 WBC 6.85 (4.0-11.0) K/uL RBC 3.88 L (4.50-5.90) M/uL Hgb 11.6 L (13.0-17.0) g/dL Hct 35.0 L (38.0-50.0) % MCV 90.2 (80.0-98.0) fL MCH 29.9 (27.0-32.0) pg MCHC 33.1 (31.0-37.0) g/dL RDW Std Deviation 49.6 (28.0-62.0) fl RDW Coeff of Muna 15 (11.0-15.0) % Plt Count 195 (150-400) K/uL MPV 9.40 (7.40-12.00) fL Neut % (Auto) 44.8 L (48.0-80.0) % Lymph % (Auto) 33.9 (16.0-40.0) % [place] % (Auto) 15.9 H (0.0-15.0) % Eos % (Auto) 4.2 (0.0-7.0) % Baso % (Auto) 1.2 (0.0-1.5) % Neut # (Auto) 3.1 (1.4-5.7) K/uL Lymph # (Auto) 2.3 (0.6-2.4) K/uL [place] # (Auto) 1.1 H (0.0-0.8) K/uL Eos # (Auto) 0.3 (0.0-0.7) K/uL Baso # (Auto) 0.1 (0.0-0.1) K/uL Nucleated RBC % 0.0 /100WBC Nucleated RBCs # 0 K/uL Sodium 137 (136-148) mmol/L Potassium 3.5 (3.5-5.1) mmol/L Chloride 103 (98-107) mmol/L Carbon Dioxide 22.8 (21.0-32.0) mmol/L BUN 6 L (7.0-18.0) mg/dL Creatinine 0.7 L (0.8-1.3) mg/dL Est Cr Clr Drug Dosing 124.56 mL/min Estimated GFR (MDRD) > 60.0 ml/min Glucose 119 H (74-106) mg/dL Calcium 8.6 (8.5-10.1) mg/dL Total Bilirubin 0.4 (0.2-1.0) mg/dL AST 41 H (15-37) IU/L ALT 82 H (14-63) IU/L Alkaline Phosphatase 58 (46-116) U/L Total Protein 6.1 L (6.4-8.2) g/dL Albumin 2.9 L (3.4-5.0) g/dL Globulin 3.2 (2.6-4.0) g/dL Albumin/Globulin Ratio 0.9 (0.9-1.6) Jin Results Last 24 Hours: Microbiology 06/21/20 17:28 Clostridioides difficile (PCR) - Final Stool / Feces 06/21/20 17:28 Shiga Toxin I & II - Final Stool / Feces Med Orders - Current: Current Medications Folic Acid (Folic Acid) 1 mg IV DAILY [facility] Last Admin: 06/25/20 10:24 Dose: 1 mg Documented by: Sodium Chloride (Normal Saline) 1,000 mls @ 125 mls/hr IV Q8H [facility] Last Admin: 06/25/20 14:29 Dose: 125 mls/hr Documented by: Pantoprazole Sodium 40 mg/ (Sodium Chloride) 10 mls @ 300 mls/hr IV Q24H [facility] Last Admin: 06/25/20 10:27 Dose: 300 mls/hr Documented by: Thiamine HCl 100 mg/ Sodium (Chloride) 101 mls @ 404 mls/hr IV DAILY [facility] Last Admin: 06/25/20 10:33 Dose: 404 mls/hr Documented by: Lorazepam (Ativan) 0 mg PO Q4H PRN; Protocol PRN Reason: CIWAA Last Admin: 06/24/20 21:42 Dose: 0.5 mg Documented by: Melatonin (Melatonin) 3 mg PO BEDTIME PRN PRN Reason: Insomnia Last Admin: 06/24/20 19:00 Dose: 3 mg Documented by: Nicotine (Habitrol) 14 mg TRDERM DAILY [facility] Last Admin: 06/25/20 10:24 Dose: Not Given Documented by: Ondansetron HCl (Zofran) 4 mg IVPUSH Q4H PRN PRN Reason: Nausea Last Admin: 06/25/20 13:03 Dose: 4 mg Documented by: Promethazine HCl (Phenergan) 25 mg IM Q6H PRN PRN Reason: Nausea Last Admin: 06/20/20 15:27 Dose: 25 mg Documented by: Sodium Chloride (Saline Flush) 2.5 ml FLUSH ASDIRECTED PRN PRN Reason: Keep Vein Open Vancomycin HCl (First-Vancomycin 25 Compounding Kit) 125 mg PO QID [facility] Last Admin: 06/25/20 13:03 Dose: 125 mg Documented by: Discontinued Medications Fentanyl (Sublimaze) Confirm Administered Dose 100 mcg .ROUTE .STK-MED ONE Stop: 06/20/20 13:09 Last Admin: 06/20/20 13:26 Dose: Not Given Documented by: Folic Acid (Folic Acid) 1 mg SUBCUT DAILY [facility] Last Admin: 06/21/20 08:45 Dose: 1 mg Documented by: Multivitamins/Minerals 10 ml/Thiamine HCl 100 mg/ Folic Acid 1 mg/ Sodium Chloride 1,011.2 mls @ 999 mls/hr IV ONETIME ONE Stop: 06/20/20 11:19 Last Admin: 06/20/20 10:44 Dose: 999 mls/hr Documented by: Pantoprazole Sodium 40 mg/ (Sodium Chloride) 20 mls @ 420 mls/hr IVPUSH ONETIME ONE Stop: 06/20/20 13:00 Last Admin: 06/20/20 13:06 Dose: 420 mls/hr Documented by: Propofol (Diprivan 100 Ml) Confirm Administered Dose 100 mls @ as directed .ROUTE .STK-MED ONE Stop: 06/20/20 13:10 Last Admin: 06/20/20 13:26 Dose: Not Given Documented by: Potassium Chloride/Sodium Chloride (Normal Saline With 40 Meq Kcl) 1,000 mls @ 150 mls/hr IV ONETIME ONE Stop: 06/21/20 14:31 Last Admin: 06/21/20 11:30 Dose: Not Given Documented by: Sodium Chloride (Normal Saline) 500 mls @ 999 mls/hr IV .BOLUS SOBIA Last Admin: 06/21/20 10:56 Dose: 999 mls/hr Documented by: Potassium Chloride/Sodium Chloride (Normal Saline With 40 Meq Kcl) 1,000 mls @ 150 mls/hr IV ONETIME ONE Stop: 06/21/20 17:39 Last Admin: 06/21/20 10:53 Dose: 150 mls/hr Documented by: Potassium Chloride/Sodium Chloride (Normal Saline With 40 Meq Kcl) 1,000 mls @ 150 mls/hr IV ASDIRECTED SOBIA Stop: 06/22/20 20:39 Last Admin: 06/22/20 20:01 Dose: 150 mls/hr Documented by: Magnesium Sulfate (Magnesium Sulfate In Water Premix) 2 gm in 50 mls @ 50 mls/hr IV ONETIME ONE Stop: 06/23/20 13:14 Last Admin: 06/23/20 12:21 Dose: 50 mls/hr Documented by: Lorazepam (Ativan) 1 mg IVPUSH ONETIME ONE Stop: 06/20/20 12:19 Last Admin: 06/20/20 12:34 Dose: 1 mg Documented by: Lorazepam (Ativan) 0 mg IVPUSH Q4H PRN; Protocol PRN Reason: CIWAA Last Admin: 06/24/20 08:05 Dose: 1 mg Documented by: Midazolam HCl (Versed 1 Mg/Ml) Confirm Administered Dose 2 mg .ROUTE .STK-MED ONE Stop: 06/20/20 13:09 Last Admin: 06/20/20 13:27 Dose: Not Given Documented by: Ondansetron HCl (Zofran) 4 mg IVPUSH ONETIME ONE Stop: 10/22/20 10:52 Last Admin: 06/20/20 11:30 Dose: 4 mg Documented by: Ondansetron HCl (Zofran) 4 mg IVPUSH ONETIME ONE Stop: 06/20/20 12:19 Last Admin: 06/20/20 12:34 Dose: 4 mg Documented by: Pantoprazole Sodium (Protonix Iv) 40 mg IV Q24H SOBIA Last Admin: 06/20/20 13:06 Dose: Not Given Documented by: Potassium Chloride (Klor-Con M20) 40 meq PO ONETIME ONE Stop: 06/22/20 13:47 Last Admin: 06/22/20 18:30 Dose: 40 meq Documented by: Potassium Chloride (Klor-Con M20) 40 meq PO ONETIME ONE Stop: 06/22/20 19:01 Last Admin: 06/22/20 18:55 Dose: 40 meq Documented by: Potassium Chloride (Klor-Con M20) 40 meq PO ONETIME ONE Stop: 06/23/20 11:48 Last Admin: 06/23/20 12:20 Dose: 40 meq Documented by: Sodium Chloride (Saline Flush) 10 ml FLUSH ASDIRECTED PRN PRN Reason: Keep Vein Open Last Admin: 06/20/20 10:45 Dose: 10 ml Documented by: Sodium Chloride (Saline Flush) 2.5 ml FLUSH ASDIRECTED PRN PRN Reason: Keep Vein Open Last Admin: 06/20/20 10:45 Dose: 2.5 ml Documented by: - Exam General: Alert, Oriented, Cooperative Lungs: Clear to Auscultation, Normal Respiratory Effort Cardiovascular: Regular Rate, Regular Rhythm GI/Abdominal Exam: Normal Bowel Sounds, Soft, Non-Tender, No Distention Extremities: Normal Inspection, No Pedal Edema Sepsis Event Note - Evaluation Sepsis Screening Result: No Definite Risk - Focused Exam Vital Signs: Vital Signs Temp Pulse Resp BP BP Pulse Ox 06/25/20 11:51 36.2 C 78 16 148/91 H 97 06/25/20 07:34 36.9 C 69 16 131/89 97 06/25/20 04:00 36.5 C 88 18 149/86 H 98 - Problem List & Annotations (1) Alcohol intoxication SNOMED Code(s): 77609844 Code(s): F10.929 - ALCOHOL USE, UNSPECIFIED WITH INTOXICATION, UNSPECIFIED Status: Acute Current Visit: Yes Qualifiers: Complication of substance-induced condition: with unspecified complication Qualified Code(s): F10.929 - Alcohol use, unspecified with intoxication, unspecified - Problem List Review Problem List Initiated/Reviewed/Updated: Yes - My Orders Last 24 Hours: My Active Orders 06/24/20 18:50 Melatonin 3 mg PO BEDTIME PRN 06/25/20 10:04 PT Evaluation and Treatment [CONS] Routine 06/25/20 Lunch Soft Diet [DIET] 06/25/20 12:00 Vancomycin [First-Vancomycin 25 Compounding Kit] 125 mg PO QID - Plan Plan:: Assessment and Plan: 1. Alcohol detox: - Continue PO Ativan per CIWAA protocol, thiamine and folic acid. - Will consult PT today to encourage ambulation. 2. C. difficile colitis: - Will start PO vancomycin 125 QID. - Advance to soft diet today. - Continue Zofran and Phenergan prn nausea. 3. DVT prophylaxis: SCDs and ambulation. <Axel Ghohs - Last Filed: 06/27/20 13:03> - Patient Data Vitals - Most Recent: Last Vital Signs Temp 36.3 C 06/27/20 11:19 Pulse 91 06/27/20 11:19 Resp 20 06/27/20 11:19 BP 134/78 06/27/20 11:19 Pulse Ox 97 06/27/20 11:19 I&O - Last 24 Hours: Intake & Output 06/26/20 06/27/20 06/27/20 22:59 06:59 14:59 Intake Total 2391 2450 10 Output Total 1700 1550 Balance 691 900 10 Lab Results Last 24 Hours: Laboratory Results - last 24 hr 06/27/20 06/27/20 06/27/20 Range/Units 05:03 05:03 05:03 WBC 7.23 (4.0-11.0) K/uL RBC 4.09 L (4.50-5.90) M/uL Hgb 12.1 L (13.0-17.0) g/dL Hct 37.2 L (38.0-50.0) % MCV 91.0 (80.0-98.0) fL MCH 29.6 (27.0-32.0) pg MCHC 32.5 (31.0-37.0) g/dL RDW Std Deviation 50.2 (28.0-62.0) fl RDW Coeff of Muna 15 (11.0-15.0) % Plt Count 260 (150-400) K/uL MPV 9.10 (7.40-12.00) fL Neut % (Auto) 44.5 L (48.0-80.0) % Lymph % (Auto) 35.7 (16.0-40.0) % [place] % (Auto) 15.8 H (0.0-15.0) % Eos % (Auto) 2.5 (0.0-7.0) % Baso % (Auto) 1.5 (0.0-1.5) % Neut # (Auto) 3.2 (1.4-5.7) K/uL Lymph # (Auto) 2.6 H (0.6-2.4) K/uL [place] # (Auto) 1.1 H (0.0-0.8) K/uL Eos # (Auto) 0.2 (0.0-0.7) K/uL Baso # (Auto) 0.1 (0.0-0.1) K/uL Nucleated RBC % 0.0 /100WBC Nucleated RBCs # 0 K/uL Sodium 139 (136-148) mmol/L Potassium 4.2 (3.5-5.1) mmol/L Chloride 103 (98-107) mmol/L Carbon Dioxide 24.9 (21.0-32.0) mmol/L BUN 8 (7.0-18.0) mg/dL Creatinine 0.9 (0.8-1.3) mg/dL Est Cr Clr Drug Dosing 96.88 mL/min Estimated GFR (MDRD) > 60.0 ml/min Glucose 87 (74-106) mg/dL Calcium 8.9 (8.5-10.1) mg/dL Magnesium 2.0 (1.8-2.4) mg/dL Total Bilirubin 0.5 (0.2-1.0) mg/dL AST 31 (15-37) IU/L ALT 70 H (14-63) IU/L Alkaline Phosphatase 51 (46-116) U/L Total Protein 6.3 L (6.4-8.2) g/dL Albumin 3.1 L (3.4-5.0) g/dL Globulin 3.2 (2.6-4.0) g/dL Albumin/Globulin Ratio 1.0 (0.9-1.6) Jin Results Last 24 Hours: Microbiology 06/21/20 17:28 Stool Culture - Preliminary Stool / Feces Shiga Toxin I & II - Final Med Orders - Current: Current Medications Folic Acid (Folic Acid) 1 mg IV DAILY [facility] Last Admin: 06/27/20 09:01 Dose: 1 mg Documented by: Sodium Chloride (Normal Saline) 1,000 mls @ 125 mls/hr IV Q8H [facility] Last Admin: 06/27/20 09:55 Dose: Not Given Documented by: Pantoprazole Sodium 40 mg/ (Sodium Chloride) 10 mls @ 300 mls/hr IV Q24H [facility] Last Admin: 06/27/20 09:02 Dose: 300 mls/hr Documented by: Thiamine HCl 100 mg/ Sodium (Chloride) 101 mls @ 404 mls/hr IV DAILY [facility] Last Admin: 06/27/20 09:57 Dose: 404 mls/hr Documented by: Lorazepam (Ativan) 0 mg PO Q4H PRN; Protocol PRN Reason: CIWAA Last Admin: 06/24/20 21:42 Dose: 0.5 mg Documented by: Melatonin (Melatonin) 3 mg PO BEDTIME PRN PRN Reason: Insomnia Last Admin: 06/26/20 20:23 Dose: 3 mg Documented by: Nicotine (Habitrol) 14 mg TRDERM DAILY [facility] Last Admin: 06/27/20 09:01 Dose: Not Given Documented by: Ondansetron HCl (Zofran) 4 mg IVPUSH Q4H PRN PRN Reason: Nausea Last Admin: 06/27/20 02:49 Dose: 4 mg Documented by: Promethazine HCl (Phenergan) 25 mg IM Q6H PRN PRN Reason: Nausea Last Admin: 06/20/20 15:27 Dose: 25 mg Documented by: Sodium Chloride (Saline Flush) 2.5 ml FLUSH ASDIRECTED PRN PRN Reason: Keep Vein Open Vancomycin HCl (First-Vancomycin 25 Compounding Kit) 125 mg PO QID [facility] Last Admin: 06/27/20 11:53 Dose: 125 mg Documented by: Discontinued Medications Diphenhydramine HCl (Benadryl) 50 mg PO ONETIME ONE Stop: 06/27/20 09:40 Last Admin: 06/27/20 09:59 Dose: 50 mg Documented by: Fentanyl (Sublimaze) Confirm Administered Dose 100 mcg .ROUTE .STK-MED ONE Stop: 06/20/20 13:09 Last Admin: 06/20/20 13:26 Dose: Not Given Documented by: Folic Acid (Folic Acid) 1 mg SUBCUT DAILY [facility] Last Admin: 06/21/20 08:45 Dose: 1 mg Documented by: Multivitamins/Minerals 10 ml/Thiamine HCl 100 mg/ Folic Acid 1 mg/ Sodium Chloride 1,011.2 mls @ 999 mls/hr IV ONETIME ONE Stop: 06/20/20 11:19 Last Admin: 06/20/20 10:44 Dose: 999 mls/hr Documented by: Pantoprazole Sodium 40 mg/ (Sodium Chloride) 20 mls @ 420 mls/hr IVPUSH ONETIME ONE Stop: 06/20/20 13:00 Last Admin: 06/20/20 13:06 Dose: 420 mls/hr Documented by: Propofol (Diprivan 100 Ml) Confirm Administered Dose 100 mls @ as directed .ROUTE .STK-MED ONE Stop: 06/20/20 13:10 Last Admin: 06/20/20 13:26 Dose: Not Given Documented by: Potassium Chloride/Sodium Chloride (Normal Saline With 40 Meq Kcl) 1,000 mls @ 150 mls/hr IV ONETIME ONE Stop: 06/21/20 14:31 Last Admin: 06/21/20 11:30 Dose: Not Given Documented by: Sodium Chloride (Normal Saline) 500 mls @ 999 mls/hr IV .BOLUS [facility] Last Admin: 06/21/20 10:56 Dose: 999 mls/hr Documented by: Potassium Chloride/Sodium Chloride (Normal Saline With 40 Meq Kcl) 1,000 mls @ 150 mls/hr IV ONETIME ONE Stop: 06/21/20 17:39 Last Admin: 06/21/20 10:53 Dose: 150 mls/hr Documented by: Potassium Chloride/Sodium Chloride (Normal Saline With 40 Meq Kcl) 1,000 mls @ 150 mls/hr IV ASDIRECTED [place]B[facility] Stop: 06/22/20 20:39 Last Admin: 06/22/20 20:01 Dose: 150 mls/hr Documented by: Magnesium Sulfate (Magnesium Sulfate In Water Premix) 2 gm in 50 mls @ 50 mls/hr IV ONETIME ONE Stop: 06/23/20 13:14 Last Admin: 06/23/20 12:21 Dose: 50 mls/hr Documented by: Lorazepam (Ativan) 1 mg IVPUSH ONETIME ONE Stop: 06/20/20 12:19 Last Admin: 06/20/20 12:34 Dose: 1 mg Documented by: Lorazepam (Ativan) 0 mg IVPUSH Q4H PRN; Protocol PRN Reason: CIWAA Last Admin: 06/24/20 08:05 Dose: 1 mg Documented by: Midazolam HCl (Versed 1 Mg/Ml) Confirm Administered Dose 2 mg .ROUTE .STK-MED ONE Stop: 06/20/20 13:09 Last Admin: 06/20/20 13:27 Dose: Not Given Documented by: Ondansetron HCl (Zofran) 4 mg IVPUSH ONETIME ONE Stop: 06/20/20 10:52 Last Admin: 06/20/20 11:30 Dose: 4 mg Documented by: Ondansetron HCl (Zofran) 4 mg IVPUSH ONETIME ONE Stop: 06/20/20 12:19 Last Admin: 06/20/20 12:34 Dose: 4 mg Documented by: Pantoprazole Sodium (Protonix Iv) 40 mg IV Q24H [facility] Last Admin: 06/20/20 13:06 Dose: Not Given Documented by: Potassium Chloride (Klor-Con M20) 40 meq PO ONETIME ONE Stop: 06/22/20 13:47 Last Admin: 06/22/20 18:30 Dose: 40 meq Documented by: Potassium Chloride (Klor-Con M20) 40 meq PO ONETIME ONE Stop: 06/22/20 19:01 Last Admin: 06/22/20 18:55 Dose: 40 meq Documented by: Potassium Chloride (Klor-Con M20) 40 meq PO ONETIME ONE Stop: 06/23/20 11:48 Last Admin: 06/23/20 12:20 Dose: 40 meq Documented by: Sodium Chloride (Saline Flush) 10 ml FLUSH ASDIRECTED PRN PRN Reason: Keep Vein Open Last Admin: 06/20/20 10:45 Dose: 10 ml Documented by: Sodium Chloride (Saline Flush) 2.5 ml FLUSH ASDIRECTED PRN PRN Reason: Keep Vein Open Last Admin: 06/20/20 10:45 Dose: 2.5 ml Documented by: Sepsis Event Note - Focused Exam Vital Signs: Vital Signs Temp Pulse Resp BP BP Pulse Ox 06/27/20 11:19 36.3 C 91 20 134/78 97 06/27/20 08:30 36.7 C 108 H 16 147/86 H 98 06/27/20 04:06 37.0 C 69 17 124/75 97 - Plan Plan:: I have seen and evaluated the patient and agree with the residents note unless specified in my note
[2020-06-25] MEDS: Melatonin 3 MG Tab PO PRN (19:25)
[2020-06-26] MEDS: Vancomycin 25 MG/ML Compounding Kit PO SCH ×4 (00:17→17:53)
[2020-06-26] MEDS: Ondansetron 4 MG/2 ML SDV IVPUSH PRN ×6 (01:18→22:09)
[2020-06-26 07:16] LABS: BLOOD UREA NITROGEN,BUN 6 mg/dL (7.0-18.0); CARBON DIOXIDE,CO2 22.6 mmol/L (21.0-32.0); CHLORIDE,CL 103 mmol/L (98-107); GLUCOSE RANDOM 93 mg/dL (74-106); POTASSIUM,K 4.5 mmol/L (3.5-5.1); SODIUM,NA 136 mmol/L (136-148)
[2020-06-26] MEDS: Sodium Chloride 0.9% 1,000 ML IV SCH ×2 (07:41→16:01)
[2020-06-26] MEDS: Folic Acid 50 MG/10 ML MDV IV SCH (09:37)
[2020-06-26] MEDS: Nicotine 14 MG/24 Hr Patch TRDERM SCH (09:37)
[2020-06-26] MEDS: Pantoprazole 40 MG in Sodium Chloride 0.9% 10 ML IV SCH (09:38)
[2020-06-26] MEDS: Thiamine 100 MG in Sodium Chloride 0.9% 100 ML IV SCH (09:42)
--- NOTE | 2020-06-26 13:59 | PCM.PN ---
<Shaq Newsome - Last Filed: 06/26/20 13:57> - General Info Date of Service: 06/26/20 Subjective Update: Patient reports mild abdominal pain and reports vomiting yesterday. Reports 2 bouts of diarrhea yesterday. [place] unsteady working with PT yesterday. - Patient Data Vitals - Most Recent: Last Vital Signs Temp 36.8 C 06/26/20 12:06 Pulse 77 06/26/20 12:06 Resp 14 06/26/20 12:06 BP 128/72 06/26/20 12:06 Pulse Ox 98 06/26/20 12:06 Weight - Most Recent: 77.111 kg I&O - Last 24 Hours: Intake & Output 06/25/20 06/26/20 06/26/20 22:59 06:59 14:59 Intake Total 2000 Output Total 750 1000 Balance -750 1000 Lab Results Last 24 Hours: Laboratory Results - last 24 hr 06/26/20 06/26/20 Range/Units 06:29 06:29 WBC 6.86 (4.0-11.0) K/uL RBC 4.11 L (4.50-5.90) M/uL Hgb 12.2 L (13.0-17.0) g/dL Hct 37.2 L (38.0-50.0) % MCV 90.5 (80.0-98.0) fL MCH 29.7 (27.0-32.0) pg MCHC 32.8 (31.0-37.0) g/dL RDW Std Deviation 50.4 (28.0-62.0) fl RDW Coeff of Muna 15 (11.0-15.0) % Plt Count 211 (150-400) K/uL MPV 8.80 (7.40-12.00) fL Neut % (Auto) 41.5 L (48.0-80.0) % Lymph % (Auto) 38.2 (16.0-40.0) % [place]bot % (Auto) 14.3 (0.0-15.0) % Eos % (Auto) 3.4 (0.0-7.0) % Baso % (Auto) 2.6 H (0.0-1.5) % Neut # (Auto) 2.9 (1.4-5.7) K/uL Lymph # (Auto) 2.6 H (0.6-2.4) K/uL [place] # (Auto) 1.0 H (0.0-0.8) K/uL Eos # (Auto) 0.2 (0.0-0.7) K/uL Baso # (Auto) 0.2 H (0.0-0.1) K/uL Nucleated RBC % 0.0 /100WBC Nucleated RBCs # 0 K/uL Sodium 136 (136-148) mmol/L Potassium 4.5 (3.5-5.1) mmol/L Chloride 103 (98-107) mmol/L Carbon Dioxide 22.6 (21.0-32.0) mmol/L BUN 6 L (7.0-18.0) mg/dL Creatinine 0.7 L (0.8-1.3) mg/dL Est Cr Clr Drug Dosing 124.56 mL/min Estimated GFR (MDRD) > 60.0 ml/min Glucose 93 (74-106) mg/dL Calcium 9.0 (8.5-10.1) mg/dL Total Bilirubin 0.5 (0.2-1.0) mg/dL AST 36 (15-37) IU/L ALT 82 H (14-63) IU/L Alkaline Phosphatase 57 (46-116) U/L Total Protein 6.2 L (6.4-8.2) g/dL Albumin 3.5 (3.4-5.0) g/dL Globulin 2.7 (2.6-4.0) g/dL Albumin/Globulin Ratio 1.3 (0.9-1.6) Jin Results Last 24 Hours: Microbiology 06/21/20 17:28 Stool Culture - Preliminary Stool / Feces Shiga Toxin I & II - Final 06/21/20 17:28 Clostridioides difficile (PCR) - Final Stool / Feces Med Orders - Current: Current Medications Folic Acid (Folic Acid) 1 mg IV DAILY [facility] Last Admin: 06/26/20 09:37 Dose: 1 mg Documented by: Sodium Chloride (Normal Saline) 1,000 mls @ 125 mls/hr IV Q8H [facility] Last Admin: 06/26/20 07:41 Dose: 125 mls/hr Documented by: Pantoprazole Sodium 40 mg/ (Sodium Chloride) 10 mls @ 300 mls/hr IV Q24H [facility] Last Admin: 06/26/20 09:38 Dose: 300 mls/hr Documented by: Thiamine HCl 100 mg/ Sodium (Chloride) 101 mls @ 404 mls/hr IV DAILY [facility] Last Admin: 06/26/20 09:42 Dose: 404 mls/hr Documented by: Lorazepam (Ativan) 0 mg PO Q4H PRN; Protocol PRN Reason: CIWAA Last Admin: 06/24/20 21:42 Dose: 0.5 mg Documented by: Melatonin (Melatonin) 3 mg PO BEDTIME PRN PRN Reason: Insomnia Last Admin: 06/25/20 19:25 Dose: 3 mg Documented by: Nicotine (Habitrol) 14 mg TRDERM DAILY [facility] Last Admin: 06/26/20 09:37 Dose: Not Given Documented by: Ondansetron HCl (Zofran) 4 mg IVPUSH Q4H PRN PRN Reason: Nausea Last Admin: 06/26/20 13:47 Dose: 4 mg Documented by: Promethazine HCl (Phenergan) 25 mg IM Q6H PRN PRN Reason: Nausea Last Admin: 06/20/20 15:27 Dose: 25 mg Documented by: Sodium Chloride (Saline Flush) 2.5 ml FLUSH ASDIRECTED PRN PRN Reason: Keep Vein Open Vancomycin HCl (First-Vancomycin 25 Compounding Kit) 125 mg PO QID [facility] Last Admin: 06/26/20 12:04 Dose: 125 mg Documented by: Discontinued Medications Fentanyl (Sublimaze) Confirm Administered Dose 100 mcg .ROUTE .STK-MED ONE Stop: 06/20/20 13:09 Last Admin: 06/20/20 13:26 Dose: Not Given Documented by: Folic Acid (Folic Acid) 1 mg SUBCUT DAILY [facility] Last Admin: 06/21/20 08:45 Dose: 1 mg Documented by: Multivitamins/Minerals 10 ml/Thiamine HCl 100 mg/ Folic Acid 1 mg/ Sodium Chloride 1,011.2 mls @ 999 mls/hr IV ONETIME ONE Stop: 06/20/20 11:19 Last Admin: 06/20/20 10:44 Dose: 999 mls/hr Documented by: Pantoprazole Sodium 40 mg/ (Sodium Chloride) 20 mls @ 420 mls/hr IVPUSH ONETIME ONE Stop: 06/20/20 13:00 Last Admin: 06/20/20 13:06 Dose: 420 mls/hr Documented by: Propofol (Diprivan 100 Ml) Confirm Administered Dose 100 mls @ as directed .ROUTE .STK-MED ONE Stop: 06/20/20 13:10 Last Admin: 06/20/20 13:26 Dose: Not Given Documented by: Potassium Chloride/Sodium Chloride (Normal Saline With 40 Meq Kcl) 1,000 mls @ 150 mls/hr IV ONETIME ONE Stop: 06/21/20 14:31 Last Admin: 06/21/20 11:30 Dose: Not Given Documented by: Sodium Chloride (Normal Saline) 500 mls @ 999 mls/hr IV .BOLUS [facility] Last Admin: 06/21/20 10:56 Dose: 999 mls/hr Documented by: Potassium Chloride/Sodium Chloride (Normal Saline With 40 Meq Kcl) 1,000 mls @ 150 mls/hr IV ONETIME ONE Stop: 06/21/20 17:39 Last Admin: 06/21/20 10:53 Dose: 150 mls/hr Documented by: Potassium Chloride/Sodium Chloride (Normal Saline With 40 Meq Kcl) 1,000 mls @ 150 mls/hr IV ASDIRECTED [facility] Stop: 06/22/20 20:39 Last Admin: 06/22/20 20:01 Dose: 150 mls/hr Documented by: Magnesium Sulfate (Magnesium Sulfate In Water Premix) 2 gm in 50 mls @ 50 mls/hr IV ONETIME ONE Stop: 06/23/20 13:14 Last Admin: 06/23/20 12:21 Dose: 50 mls/hr Documented by: Lorazepam (Ativan) 1 mg IVPUSH ONETIME ONE Stop: 06/20/20 12:19 Last Admin: 06/20/20 12:34 Dose: 1 mg Documented by: Lorazepam (Ativan) 0 mg IVPUSH Q4H PRN; Protocol PRN Reason: CIWAA Last Admin: 06/24/20 08:05 Dose: 1 mg Documented by: Midazolam HCl (Versed 1 Mg/Ml) Confirm Administered Dose 2 mg .ROUTE .STK-MED ONE Stop: 06/20/20 13:09 Last Admin: 06/20/20 13:27 Dose: Not Given Documented by: Ondansetron HCl (Zofran) 4 mg IVPUSH ONETIME ONE Stop: 06/20/20 10:52 Last Admin: 06/20/20 11:30 Dose: 4 mg Documented by: Ondansetron HCl (Zofran) 4 mg IVPUSH ONETIME ONE Stop: 06/20/20 12:19 Last Admin: 06/20/20 12:34 Dose: 4 mg Documented by: Pantoprazole Sodium (Protonix Iv) 40 mg IV Q24H [facility] Last Admin: 06/20/20 13:06 Dose: Not Given Documented by: Potassium Chloride (Klor-Con M20) 40 meq PO ONETIME ONE Stop: 06/22/20 13:47 Last Admin: 06/22/20 18:30 Dose: 40 meq Documented by: Potassium Chloride (Klor-Con M20) 40 meq PO ONETIME ONE Stop: 06/22/20 19:01 Last Admin: 06/22/20 18:55 Dose: 40 meq Documented by: Potassium Chloride (Klor-Con M20) 40 meq PO ONETIME ONE Stop: 06/23/20 11:48 Last Admin: 06/23/20 12:20 Dose: 40 meq Documented by: Sodium Chloride (Saline Flush) 10 ml FLUSH ASDIRECTED PRN PRN Reason: Keep Vein Open Last Admin: 06/20/20 10:45 Dose: 10 ml Documented by: Sodium Chloride (Saline Flush) 2.5 ml FLUSH ASDIRECTED PRN PRN Reason: Keep Vein Open Last Admin: 06/20/20 10:45 Dose: 2.5 ml Documented by: - Exam General: Alert, Oriented, Cooperative, No Acute Distress Lungs: Clear to Auscultation, Normal Respiratory Effort Cardiovascular: Regular Rate, Regular Rhythm GI/Abdominal Exam: Normal Bowel Sounds, Soft, Non-Tender, No Distention Extremities: Normal Inspection, No Pedal Edema Sepsis Event Note - Evaluation Sepsis Screening Result: No Definite Risk - Focused Exam Vital Signs: Vital Signs Temp Pulse Resp BP BP Pulse Ox 06/26/20 12:06 36.8 C 77 14 128/72 98 06/26/20 09:45 37.4 C 72 15 135/79 97 06/26/20 04:00 36.6 C 70 16 147/85 H 98 - Problem List & Annotations (1) Alcohol intoxication SNOMED Code(s): 96840180 Code(s): F10.929 - ALCOHOL USE, UNSPECIFIED WITH INTOXICATION, UNSPECIFIED Status: Acute Current Visit: Yes Qualifiers: Complication of substance-induced condition: with unspecified complication Qualified Code(s): F10.929 - Alcohol use, unspecified with intoxication, unspecified - Problem List Review Problem List Initiated/Reviewed/Updated: Yes - Plan Plan:: Assessment and Plan: 1. Alcohol detox: - Patient not requiring Ativan overnight. - Continue PO Ativan per CIWAA protocol, thiamine and folic acid. - Will continue working with PT today for ambulation. 2. C. difficile colitis: - Continue PO vancomycin 125 QID. 3. DVT prophylaxis: SCDs and ambulation. <Axel Ghosh - Last Filed: 06/27/20 13:23> - Patient Data Vitals - Most Recent: Last Vital Signs Temp 36.3 C 06/27/20 11:19 Pulse 91 06/27/20 11:19 Resp 20 06/27/20 11:19 BP 134/78 06/27/20 11:19 Pulse Ox 97 06/27/20 11:19 I&O - Last 24 Hours: Intake & Output 06/26/20 06/27/20 06/27/20 22:59 06:59 14:59 Intake Total 2391 2450 10 Output Total 1700 1550 Balance 691 900 10 Lab Results Last 24 Hours: Laboratory Results - last 24 hr 06/27/20 06/27/20 06/27/20 Range/Units 05:03 05:03 05:03 WBC 7.23 (4.0-11.0) K/uL RBC 4.09 L (4.50-5.90) M/uL Hgb 12.1 L (13.0-17.0) g/dL Hct 37.2 L (38.0-50.0) % MCV 91.0 (80.0-98.0) fL MCH 29.6 (27.0-32.0) pg MCHC 32.5 (31.0-37.0) g/dL RDW Std Deviation 50.2 (28.0-62.0) fl RDW Coeff of Muna 15 (11.0-15.0) % Plt Count 260 (150-400) K/uL MPV 9.10 (7.40-12.00) fL Neut % (Auto) 44.5 L (48.0-80.0) % Lymph % (Auto) 35.7 (16.0-40.0) % [place] % (Auto) 15.8 H (0.0-15.0) % Eos % (Auto) 2.5 (0.0-7.0) % Baso % (Auto) 1.5 (0.0-1.5) % Neut # (Auto) 3.2 (1.4-5.7) K/uL Lymph # (Auto) 2.6 H (0.6-2.4) K/uL [place] # (Auto) 1.1 H (0.0-0.8) K/uL Eos # (Auto) 0.2 (0.0-0.7) K/uL Baso # (Auto) 0.1 (0.0-0.1) K/uL Nucleated RBC % 0.0 /100WBC Nucleated RBCs # 0 K/uL Sodium 139 (136-148) mmol/L Potassium 4.2 (3.5-5.1) mmol/L Chloride 103 (98-107) mmol/L Carbon Dioxide 24.9 (21.0-32.0) mmol/L BUN 8 (7.0-18.0) mg/dL Creatinine 0.9 (0.8-1.3) mg/dL Est Cr Clr Drug Dosing 96.88 mL/min Estimated GFR (MDRD) > 60.0 ml/min Glucose 87 (74-106) mg/dL Calcium 8.9 (8.5-10.1) mg/dL Magnesium 2.0 (1.8-2.4) mg/dL Total Bilirubin 0.5 (0.2-1.0) mg/dL AST 31 (15-37) IU/L ALT 70 H (14-63) IU/L Alkaline Phosphatase 51 (46-116) U/L Total Protein 6.3 L (6.4-8.2) g/dL Albumin 3.1 L (3.4-5.0) g/dL Globulin 3.2 (2.6-4.0) g/dL Albumin/Globulin Ratio 1.0 (0.9-1.6) Jin Results Last 24 Hours: Microbiology 06/21/20 17:28 Stool Culture - Preliminary Stool / Feces Shiga Toxin I & II - Final Med Orders - Current: Current Medications Folic Acid (Folic Acid) 1 mg IV DAILY [facility] Last Admin: 06/27/20 09:01 Dose: 1 mg Documented by: Sodium Chloride (Normal Saline) 1,000 mls @ 125 mls/hr IV Q8H [facility] Last Admin: 06/27/20 09:55 Dose: Not Given Documented by: Pantoprazole Sodium 40 mg/ (Sodium Chloride) 10 mls @ 300 mls/hr IV Q24H [facility] Last Admin: 06/27/20 09:02 Dose: 300 mls/hr Documented by: Thiamine HCl 100 mg/ Sodium (Chloride) 101 mls @ 404 mls/hr IV DAILY [facility] Last Admin: 06/27/20 09:57 Dose: 404 mls/hr Documented by: Lorazepam (Ativan) 0 mg PO Q4H PRN; Protocol PRN Reason: CIWAA Last Admin: 06/24/20 21:42 Dose: 0.5 mg Documented by: Melatonin (Melatonin) 3 mg PO BEDTIME PRN PRN Reason: Insomnia Last Admin: 06/26/20 20:23 Dose: 3 mg Documented by: Nicotine (Habitrol) 14 mg TRDERM DAILY [facility] Last Admin: 06/27/20 09:01 Dose: Not Given Documented by: Ondansetron HCl (Zofran) 4 mg IVPUSH Q4H PRN PRN Reason: Nausea Last Admin: 06/27/20 02:49 Dose: 4 mg Documented by: Promethazine HCl (Phenergan) 25 mg IM Q6H PRN PRN Reason: Nausea Last Admin: 06/20/20 15:27 Dose: 25 mg Documented by: Sodium Chloride (Saline Flush) 2.5 ml FLUSH ASDIRECTED PRN PRN Reason: Keep Vein Open Vancomycin HCl (First-Vancomycin 25 Compounding Kit) 125 mg PO QID [facility] Last Admin: 06/27/20 11:53 Dose: 125 mg Documented by: Discontinued Medications Diphenhydramine HCl (Benadryl) 50 mg PO ONETIME ONE Stop: 06/27/20 09:40 Last Admin: 06/27/20 09:59 Dose: 50 mg Documented by: Fentanyl (Sublimaze) Confirm Administered Dose 100 mcg .ROUTE .STK-MED ONE Stop: 06/20/20 13:09 Last Admin: 06/20/20 13:26 Dose: Not Given Documented by: Folic Acid (Folic Acid) 1 mg SUBCUT DAILY [facility] Last Admin: 06/21/20 08:45 Dose: 1 mg Documented by: Multivitamins/Minerals 10 ml/Thiamine HCl 100 mg/ Folic Acid 1 mg/ Sodium Chloride 1,011.2 mls @ 999 mls/hr IV ONETIME ONE Stop: 06/20/20 11:19 Last Admin: 06/20/20 10:44 Dose: 999 mls/hr Documented by: Pantoprazole Sodium 40 mg/ (Sodium Chloride) 20 mls @ 420 mls/hr IVPUSH ONETIME ONE Stop: 06/20/20 13:00 Last Admin: 06/20/20 13:06 Dose: 420 mls/hr Documented by: Propofol (Diprivan 100 Ml) Confirm Administered Dose 100 mls @ as directed .ROUTE .STK-MED ONE Stop: 06/20/20 13:10 Last Admin: 06/20/20 13:26 Dose: Not Given Documented by: Potassium Chloride/Sodium Chloride (Normal Saline With 40 Meq Kcl) 1,000 mls @ 150 mls/hr IV ONETIME ONE Stop: 06/21/20 14:31 Last Admin: 06/21/20 11:30 Dose: Not Given Documented by: Sodium Chloride (Normal Saline) 500 mls @ 999 mls/hr IV .BOLUS [facility] Last Admin: 06/21/20 10:56 Dose: 999 mls/hr Documented by: Potassium Chloride/Sodium Chloride (Normal Saline With 40 Meq Kcl) 1,000 mls @ 150 mls/hr IV ONETIME ONE Stop: 06/21/20 17:39 Last Admin: 06/21/20 10:53 Dose: 150 mls/hr Documented by: Potassium Chloride/Sodium Chloride (Normal Saline With 40 Meq Kcl) 1,000 mls @ 150 mls/hr IV ASDIRECTED [facility] Stop: 06/22/20 20:39 Last Admin: 06/22/20 20:01 Dose: 150 mls/hr Documented by: Magnesium Sulfate (Magnesium Sulfate In Water Premix) 2 gm in 50 mls @ 50 mls/hr IV ONETIME ONE Stop: 06/23/20 13:14 Last Admin: 06/23/20 12:21 Dose: 50 mls/hr Documented by: Lorazepam (Ativan) 1 mg IVPUSH ONETIME ONE Stop: 06/20/20 12:19 Last Admin: 06/20/20 12:34 Dose: 1 mg Documented by: Lorazepam (Ativan) 0 mg IVPUSH Q4H PRN; Protocol PRN Reason: CIWAA Last Admin: 06/24/20 08:05 Dose: 1 mg Documented by: Midazolam HCl (Versed 1 Mg/Ml) Confirm Administered Dose 2 mg .ROUTE .STK-MED ONE Stop: 06/20/20 13:09 Last Admin: 06/20/20 13:27 Dose: Not Given Documented by: Ondansetron HCl (Zofran) 4 mg IVPUSH ONETIME ONE Stop: 06/20/20 10:52 Last Admin: 06/20/20 11:30 Dose: 4 mg Documented by: Ondansetron HCl (Zofran) 4 mg IVPUSH ONETIME ONE Stop: 06/20/20 12:19 Last Admin: 06/20/20 12:34 Dose: 4 mg Documented by: Pantoprazole Sodium (Protonix Iv) 40 mg IV Q24H [facility] Last Admin: 06/20/20 13:06 Dose: Not Given Documented by: Potassium Chloride (Klor-Con M20) 40 meq PO ONETIME ONE Stop: 06/22/20 13:47 Last Admin: 06/22/20 18:30 Dose: 40 meq Documented by: Potassium Chloride (Klor-Con M20) 40 meq PO ONETIME ONE Stop: 06/22/20 19:01 Last Admin: 06/22/20 18:55 Dose: 40 meq Documented by: Potassium Chloride (Klor-Con M20) 40 meq PO ONETIME ONE Stop: 06/23/20 11:48 Last Admin: 06/23/20 12:20 Dose: 40 meq Documented by: Sodium Chloride (Saline Flush) 10 ml FLUSH ASDIRECTED PRN PRN Reason: Keep Vein Open Last Admin: 06/20/20 10:45 Dose: 10 ml Documented by: Sodium Chloride (Saline Flush) 2.5 ml FLUSH ASDIRECTED PRN PRN Reason: Keep Vein Open Last Admin: 06/20/20 10:45 Dose: 2.5 ml Documented by: Sepsis Event Note - Focused Exam Vital Signs: Vital Signs Temp Pulse Resp BP BP Pulse Ox 06/27/20 11:19 36.3 C 91 20 134/78 97 06/27/20 08:30 36.7 C 108 H 16 147/86 H 98 06/27/20 04:06 37.0 C 69 17 124/75 97 - Plan Plan:: I have seen and evaluated the patient and agree with the residents note unless specified in my note
[2020-06-26] MEDS: Melatonin 3 MG Tab PO PRN (20:23)
[2020-06-27] MEDS: Vancomycin 25 MG/ML Compounding Kit PO SCH ×3 (00:01→11:53)
[2020-06-27] MEDS: Sodium Chloride 0.9% 1,000 ML IV SCH ×2 (00:01→09:55)
[2020-06-27] MEDS: Ondansetron 4 MG/2 ML SDV IVPUSH PRN (02:49)
[2020-06-27 06:46] LABS: BLOOD UREA NITROGEN,BUN 8 mg/dL (7.0-18.0); CARBON DIOXIDE,CO2 24.9 mmol/L (21.0-32.0); CHLORIDE,CL 103 mmol/L (98-107); GLUCOSE RANDOM 87 mg/dL (74-106); POTASSIUM,K 4.2 mmol/L (3.5-5.1); SODIUM,NA 139 mmol/L (136-148)
[2020-06-27] MEDS: Nicotine 14 MG/24 Hr Patch TRDERM SCH (09:01)
[2020-06-27] MEDS: Folic Acid 50 MG/10 ML MDV IV SCH (09:01)
[2020-06-27] MEDS: Pantoprazole 40 MG in Sodium Chloride 0.9% 10 ML IV SCH (09:02)
[2020-06-27] MEDS ORDERED: diphenhydrAMINE 50 MG Cap PO ONE (09:39)
[2020-06-27] MEDS: Thiamine 100 MG in Sodium Chloride 0.9% 100 ML IV SCH (09:57)
--- NOTE | 2020-06-27 10:45 | PCM.DCSUM1 ---
<Shaq Newsome - Last Filed: 06/27/20 11:32> Discharge Summary - Hospital Course Free Text/Narrative:: 55-year-old male admitted for alcohol intoxication and detox. He was treated with lorazepam prn CIWAA protocol, thiamine and folic acid. Patient also reported having abdominal pain, nausea, vomiting and diarrhea. Stool test was positive for c. diff. He was started on PO vancomycin. Patient abdominal pain and diarrhea steadily improved and was able to tolerate PO diet. PT was consult ed for ambulation and patient was able to ambulate on his own by day of discharge. He was discharged in stable condition on thiamine, folic acid and PO vancomycin for 8 more days. He was provided psychiatry referral as an outpatient. Also advised to follow-up with PCP. - Discharge Data Discharge Date: 06/27/20 Discharge Disposition: Home, Self-Care 01 Condition: Stable - Referral to Home Health Primary Care Physician: PCP None - Discharge Diagnosis/Problem(s) (1) Alcohol intoxication SNOMED Code(s): 31287541 ICD Code: F10.929 - ALCOHOL USE, UNSPECIFIED WITH INTOXICATION, UNSPECIFIED Status: Acute Current Visit: Yes Qualifiers: Complication of substance-induced condition: with unspecified complication Qualified Code(s): F10.929 - Alcohol use, unspecified with intoxication, unspecified - Patient Summary/Data Consults: Consultations 06/25/20 10:04 PT Evaluation and Treatment [CONS] Routine - Patient Instructions Diet: Regular Diet as Tolerated Activity: As Tolerated Notify Provider of: Fever, Increased Pain, Swelling and Redness, Drainage, Nausea and/or Vomiting - Discharge Plan *PRESCRIPTION DRUG MONITORING PROGRAM REVIEWED*: Not Applicable *COPY OF PRESCRIPTION DRUG MONITORING REPORT IN PATIENT JOANNA: Not Applicable Prescriptions/Med Rec: diphenhydrAMINE HCL [Benadryl Allergy] 25 mg PO Q8H PRN 3 Days #9 tablet PRN Reason: Itching Folic Acid 1 mg PO BEDTIME 30 Days #30 tab Vancomycin [Vancocin 125 MG Capsule] 125 mg PO QID 8 Days #32 cap Thiamine [Vitamin B-1] 100 mg PO BEDTIME 30 Days #30 tab Home Medications: Home Meds Folic Acid 1 mg PO BEDTIME 30 Days #30 tab 06/27/20 [Rx] Thiamine [Vitamin B-1] 100 mg PO BEDTIME 30 Days #30 tab 06/27/20 [Rx] Vancomycin [Vancocin 125 MG Capsule] 125 mg PO QID 8 Days #32 cap 06/27/20 [Rx] diphenhydrAMINE HCL [Benadryl Allergy] 25 mg PO Q8H PRN 3 Days #9 tablet 06/27/20 [Rx] Oxygen Therapy Mode: Room Air Patient Handouts: Alcohol Intoxication, [id number], Diphenhydramine capsules or tablets, Thiamine, Vitamin B1 tablets, Nausea and Vomiting, Adult, Folic Acid, Vitamin B9 tablets, Vancomycin capsules Referrals: Sumanth Jacob MD [Physician] - 07/02/20 10:00 am (TELEPHONE Consult. Call [phone]) Kailey Swartz NP [Nurse Practitioner] - 07/03/20 4:00 pm - Discharge Summary/Plan Comment DC Time >30 min.: No - Patient Data Vitals - Most Recent: Last Vital Signs Temp 36.7 C 06/27/20 08:30 Pulse 108 H 06/27/20 08:30 Resp 16 06/27/20 08:30 BP 147/86 H 06/27/20 08:30 Pulse Ox 98 06/27/20 08:30 Weight - Most Recent: 77.111 kg I&O - Last 24 hours: Intake & Output 06/26/20 06/27/20 06/27/20 22:59 06:59 14:59 Intake Total 2391 2450 10 Output Total 1700 1550 Balance 691 900 10 Lab Results - Last 24 hrs: Laboratory Results - last 24 hr 06/27/20 06/27/20 06/27/20 Range/Units 05:03 05:03 05:03 WBC 7.23 (4.0-11.0) K/uL RBC 4.09 L (4.50-5.90) M/uL Hgb 12.1 L (13.0-17.0) g/dL Hct 37.2 L (38.0-50.0) % MCV 91.0 (80.0-98.0) fL MCH 29.6 (27.0-32.0) pg MCHC 32.5 (31.0-37.0) g/dL RDW Std Deviation 50.2 (28.0-62.0) fl RDW Coeff of Muna 15 (11.0-15.0) % Plt Count 260 (150-400) K/uL MPV 9.10 (7.40-12.00) fL Neut % (Auto) 44.5 L (48.0-80.0) % Lymph % (Auto) 35.7 (16.0-40.0) % [place] % (Auto) 15.8 H (0.0-15.0) % Eos % (Auto) 2.5 (0.0-7.0) % Baso % (Auto) 1.5 (0.0-1.5) % Neut # (Auto) 3.2 (1.4-5.7) K/uL Lymph # (Auto) 2.6 H (0.6-2.4) K/uL [place] # (Auto) 1.1 H (0.0-0.8) K/uL Eos # (Auto) 0.2 (0.0-0.7) K/uL Baso # (Auto) 0.1 (0.0-0.1) K/uL Nucleated RBC % 0.0 /100WBC Nucleated RBCs # 0 K/uL Sodium 139 (136-148) mmol/L Potassium 4.2 (3.5-5.1) mmol/L Chloride 103 (98-107) mmol/L Carbon Dioxide 24.9 (21.0-32.0) mmol/L BUN 8 (7.0-18.0) mg/dL Creatinine 0.9 (0.8-1.3) mg/dL Est Cr Clr Drug Dosing 96.88 mL/min Estimated GFR (MDRD) > 60.0 ml/min Glucose 87 (74-106) mg/dL Calcium 8.9 (8.5-10.1) mg/dL Magnesium 2.0 (1.8-2.4) mg/dL Total Bilirubin 0.5 (0.2-1.0) mg/dL AST 31 (15-37) IU/L ALT 70 H (14-63) IU/L Alkaline Phosphatase 51 (46-116) U/L Total Protein 6.3 L (6.4-8.2) g/dL Albumin 3.1 L (3.4-5.0) g/dL Globulin 3.2 (2.6-4.0) g/dL Albumin/Globulin Ratio 1.0 (0.9-1.6) ERICK Results - Last 24 hrs: Microbiology 06/21/20 17:28 Stool Culture - Preliminary Stool / Feces Shiga Toxin I & II - Final Med Orders - Current: Current Medications Folic Acid (Folic Acid) 1 mg IV DAILY [facility] Last Admin: 06/27/20 09:01 Dose: 1 mg Documented by: Sodium Chloride (Normal Saline) 1,000 mls @ 125 mls/hr IV Q8H [facility] Last Admin: 06/27/20 09:55 Dose: Not Given Documented by: Pantoprazole Sodium 40 mg/ (Sodium Chloride) 10 mls @ 300 mls/hr IV Q24H [facility] Last Admin: 06/27/20 09:02 Dose: 300 mls/hr Documented by: Thiamine HCl 100 mg/ Sodium (Chloride) 101 mls @ 404 mls/hr IV DAILY [facility] Last Admin: 06/27/20 09:57 Dose: 404 mls/hr Documented by: Lorazepam (Ativan) 0 mg PO Q4H PRN; Protocol PRN Reason: CIWAA Last Admin: 06/24/20 21:42 Dose: 0.5 mg Documented by: Melatonin (Melatonin) 3 mg PO BEDTIME PRN PRN Reason: Insomnia Last Admin: 06/26/20 20:23 Dose: 3 mg Documented by: Nicotine (Habitrol) 14 mg TRDERM DAILY [facility] Last Admin: 06/27/20 09:01 Dose: Not Given Documented by: Ondansetron HCl (Zofran) 4 mg IVPUSH Q4H PRN PRN Reason: Nausea Last Admin: 06/27/20 02:49 Dose: 4 mg Documented by: Promethazine HCl (Phenergan) 25 mg IM Q6H PRN PRN Reason: Nausea Last Admin: 06/20/20 15:27 Dose: 25 mg Documented by: Sodium Chloride (Saline Flush) 2.5 ml FLUSH ASDIRECTED PRN PRN Reason: Keep Vein Open Vancomycin HCl (First-Vancomycin 25 Compounding Kit) 125 mg PO QID [facility] Last Admin: 06/27/20 06:25 Dose: 125 mg Documented by: Discontinued Medications Diphenhydramine HCl (Benadryl) 50 mg PO ONETIME ONE Stop: 06/27/20 09:40 Last Admin: 06/27/20 09:59 Dose: 50 mg Documented by: Fentanyl (Sublimaze) Confirm Administered Dose 100 mcg .ROUTE .STK-MED ONE Stop: 06/20/20 13:09 Last Admin: 06/20/20 13:26 Dose: Not Given Documented by: Folic Acid (Folic Acid) 1 mg SUBCUT DAILY [facility] Last Admin: 06/21/20 08:45 Dose: 1 mg Documented by: Multivitamins/Minerals 10 ml/Thiamine HCl 100 mg/ Folic Acid 1 mg/ Sodium Chloride 1,011.2 mls @ 999 mls/hr IV ONETIME ONE Stop: 06/20/20 11:19 Last Admin: 06/20/20 10:44 Dose: 999 mls/hr Documented by: Pantoprazole Sodium 40 mg/ (Sodium Chloride) 20 mls @ 420 mls/hr IVPUSH ONETIME ONE Stop: 06/20/20 13:00 Last Admin: 06/20/20 13:06 Dose: 420 mls/hr Documented by: Propofol (Diprivan 100 Ml) Confirm Administered Dose 100 mls @ as directed .ROUTE .STK-MED ONE Stop: 06/20/20 13:10 Last Admin: 06/20/20 13:26 Dose: Not Given Documented by: Potassium Chloride/Sodium Chloride (Normal Saline With 40 Meq Kcl) 1,000 mls @ 150 mls/hr IV ONETIME ONE Stop: 06/21/20 14:31 Last Admin: 06/21/20 11:30 Dose: Not Given Documented by: Sodium Chloride (Normal Saline) 500 mls @ 999 mls/hr IV .BOLUS [facility] Last Admin: 06/21/20 10:56 Dose: 999 mls/hr Documented by: Potassium Chloride/Sodium Chloride (Normal Saline With 40 Meq Kcl) 1,000 mls @ 150 mls/hr IV ONETIME ONE Stop: 06/21/20 17:39 Last Admin: 06/21/20 10:53 Dose: 150 mls/hr Documented by: Potassium Chloride/Sodium Chloride (Normal Saline With 40 Meq Kcl) 1,000 mls @ 150 mls/hr IV ASDIRECTED [facility] Stop: 06/22/20 20:39 Last Admin: 06/22/20 20:01 Dose: 150 mls/hr Documented by: Magnesium Sulfate (Magnesium Sulfate In Water Premix) 2 gm in 50 mls @ 50 mls/hr IV ONETIME ONE Stop: 06/23/20 13:14 Last Admin: 06/23/20 12:21 Dose: 50 mls/hr Documented by: Lorazepam (Ativan) 1 mg IVPUSH ONETIME ONE Stop: 06/20/20 12:19 Last Admin: 06/20/20 12:34 Dose: 1 mg Documented by: Lorazepam (Ativan) 0 mg IVPUSH Q4H PRN; Protocol PRN Reason: CIWAA Last Admin: 06/24/20 08:05 Dose: 1 mg Documented by: Midazolam HCl (Versed 1 Mg/Ml) Confirm Administered Dose 2 mg .ROUTE .STK-MED ONE Stop: 06/20/20 13:09 Last Admin: 06/20/20 13:27 Dose: Not Given Documented by: Ondansetron HCl (Zofran) 4 mg IVPUSH ONETIME ONE Stop: 06/20/20 10:52 Last Admin: 06/20/20 11:30 Dose: 4 mg Documented by: Ondansetron HCl (Zofran) 4 mg IVPUSH ONETIME ONE Stop: 06/20/20 12:19 Last Admin: 06/20/20 12:34 Dose: 4 mg Documented by: Pantoprazole Sodium (Protonix Iv) 40 mg IV Q24H [facility] Last Admin: 06/20/20 13:06 Dose: Not Given Documented by: Potassium Chloride (Klor-Con M20) 40 meq PO ONETIME ONE Stop: 06/22/20 13:47 Last Admin: 06/22/20 18:30 Dose: 40 meq Documented by: Potassium Chloride (Klor-Con M20) 40 meq PO ONETIME ONE Stop: 06/22/20 19:01 Last Admin: 06/22/20 18:55 Dose: 40 meq Documented by: Potassium Chloride (Klor-Con M20) 40 meq PO ONETIME ONE Stop: 06/23/20 11:48 Last Admin: 06/23/20 12:20 Dose: 40 meq Documented by: Sodium Chloride (Saline Flush) 10 ml FLUSH ASDIRECTED PRN PRN Reason: Keep Vein Open Last Admin: 06/20/20 10:45 Dose: 10 ml Documented by: Sodium Chloride (Saline Flush) 2.5 ml FLUSH ASDIRECTED PRN PRN Reason: Keep Vein Open Last Admin: 06/20/20 10:45 Dose: 2.5 ml Documented by: <Axel Ghosh - Last Filed: 06/27/20 13:11> Discharge Summary - Hospital Course Free Text/Narrative:: I have seen and evaluated the patient and agree with the residents note unless specified in my note - Referral to Home Health Primary Care Physician: PCP None - Patient Summary/Data Consults: Consultations 06/25/20 10:04 PT Evaluation and Treatment [CONS] Routine - Patient Data Vitals - Most Recent: Last Vital Signs Temp 36.3 C 06/27/20 11:19 Pulse 91 06/27/20 11:19 Resp 20 06/27/20 11:19 BP 134/78 06/27/20 11:19 Pulse Ox 97 06/27/20 11:19 I&O - Last 24 hours: Intake & Output 06/26/20 06/27/20 06/27/20 22:59 06:59 14:59 Intake Total 2391 2450 10 Output Total 1700 1550 Balance 691 900 10 Lab Results - Last 24 hrs: Laboratory Results - last 24 hr 06/27/20 06/27/20 06/27/20 Range/Units 05:03 05:03 05:03 WBC 7.23 (4.0-11.0) K/uL RBC 4.09 L (4.50-5.90) M/uL Hgb 12.1 L (13.0-17.0) g/dL Hct 37.2 L (38.0-50.0) % MCV 91.0 (80.0-98.0) fL MCH 29.6 (27.0-32.0) pg MCHC 32.5 (31.0-37.0) g/dL RDW Std Deviation 50.2 (28.0-62.0) fl RDW Coeff of Muna 15 (11.0-15.0) % Plt Count 260 (150-400) K/uL MPV 9.10 (7.40-12.00) fL Neut % (Auto) 44.5 L (48.0-80.0) % Lymph % (Auto) 35.7 (16.0-40.0) % [place] % (Auto) 15.8 H (0.0-15.0) % Eos % (Auto) 2.5 (0.0-7.0) % Baso % (Auto) 1.5 (0.0-1.5) % Neut # (Auto) 3.2 (1.4-5.7) K/uL Lymph # (Auto) 2.6 H (0.6-2.4) K/uL [place] # (Auto) 1.1 H (0.0-0.8) K/uL Eos # (Auto) 0.2 (0.0-0.7) K/uL Baso # (Auto) 0.1 (0.0-0.1) K/uL Nucleated RBC % 0.0 /100WBC Nucleated RBCs # 0 K/uL Sodium 139 (136-148) mmol/L Potassium 4.2 (3.5-5.1) mmol/L Chloride 103 (98-107) mmol/L Carbon Dioxide 24.9 (21.0-32.0) mmol/L BUN 8 (7.0-18.0) mg/dL Creatinine 0.9 (0.8-1.3) mg/dL Est Cr Clr Drug Dosing 96.88 mL/min Estimated GFR (MDRD) > 60.0 ml/min Glucose 87 (74-106) mg/dL Calcium 8.9 (8.5-10.1) mg/dL Magnesium 2.0 (1.8-2.4) mg/dL Total Bilirubin 0.5 (0.2-1.0) mg/dL AST 31 (15-37) IU/L ALT 70 H (14-63) IU/L Alkaline Phosphatase 51 (46-116) U/L Total Protein 6.3 L (6.4-8.2) g/dL Albumin 3.1 L (3.4-5.0) g/dL Globulin 3.2 (2.6-4.0) g/dL Albumin/Globulin Ratio 1.0 (0.9-1.6) ERICK Results - Last 24 hrs: Microbiology 06/21/20 17:28 Stool Culture - Preliminary Stool / Feces Shiga Toxin I & II - Final Med Orders - Current: Current Medications Folic Acid (Folic Acid) 1 mg IV DAILY [facility] Last Admin: 06/27/20 09:01 Dose: 1 mg Documented by: Sodium Chloride (Normal Saline) 1,000 mls @ 125 mls/hr IV Q8H [facility] Last Admin: 06/27/20 09:55 Dose: Not Given Documented by: Pantoprazole Sodium 40 mg/ (Sodium Chloride) 10 mls @ 300 mls/hr IV Q24H [facility] Last Admin: 06/27/20 09:02 Dose: 300 mls/hr Documented by: Thiamine HCl 100 mg/ Sodium (Chloride) 101 mls @ 404 mls/hr IV DAILY [facility] Last Admin: 06/27/20 09:57 Dose: 404 mls/hr Documented by: Lorazepam (Ativan) 0 mg PO Q4H PRN; Protocol PRN Reason: CIWAA Last Admin: 06/24/20 21:42 Dose: 0.5 mg Documented by: Melatonin (Melatonin) 3 mg PO BEDTIME PRN PRN Reason: Insomnia Last Admin: 06/26/20 20:23 Dose: 3 mg Documented by: Nicotine (Habitrol) 14 mg TRDERM DAILY [facility] Last Admin: 06/27/20 09:01 Dose: Not Given Documented by: Ondansetron HCl (Zofran) 4 mg IVPUSH Q4H PRN PRN Reason: Nausea Last Admin: 06/27/20 02:49 Dose: 4 mg Documented by: Promethazine HCl (Phenergan) 25 mg IM Q6H PRN PRN Reason: Nausea Last Admin: 06/20/20 15:27 Dose: 25 mg Documented by: Sodium Chloride (Saline Flush) 2.5 ml FLUSH ASDIRECTED PRN PRN Reason: Keep Vein Open Vancomycin HCl (First-Vancomycin 25 Compounding Kit) 125 mg PO QID [facility] Last Admin: 06/27/20 11:53 Dose: 125 mg Documented by: Discontinued Medications Diphenhydramine HCl (Benadryl) 50 mg PO ONETIME ONE Stop: 06/27/20 09:40 Last Admin: 06/27/20 09:59 Dose: 50 mg Documented by: Fentanyl (Sublimaze) Confirm Administered Dose 100 mcg .ROUTE .STK-MED ONE Stop: 06/20/20 13:09 Last Admin: 06/20/20 13:26 Dose: Not Given Documented by: Folic Acid (Folic Acid) 1 mg SUBCUT DAILY [facility] Last Admin: 06/21/20 08:45 Dose: 1 mg Documented by: Multivitamins/Minerals 10 ml/Thiamine HCl 100 mg/ Folic Acid 1 mg/ Sodium Chloride 1,011.2 mls @ 999 mls/hr IV ONETIME ONE Stop: 06/20/20 11:19 Last Admin: 06/20/20 10:44 Dose: 999 mls/hr Documented by: Pantoprazole Sodium 40 mg/ (Sodium Chloride) 20 mls @ 420 mls/hr IVPUSH ONETIME ONE Stop: 06/20/20 13:00 Last Admin: 06/20/20 13:06 Dose: 420 mls/hr Documented by: Propofol (Diprivan 100 Ml) Confirm Administered Dose 100 mls @ as directed .ROUTE .STK-MED ONE Stop: 06/20/20 13:10 Last Admin: 06/20/20 13:26 Dose: Not Given Documented by: Potassium Chloride/Sodium Chloride (Normal Saline With 40 Meq Kcl) 1,000 mls @ 150 mls/hr IV ONETIME ONE Stop: 06/21/20 14:31 Last Admin: 06/21/20 11:30 Dose: Not Given Documented by: Sodium Chloride (Normal Saline) 500 mls @ 999 mls/hr IV .BOLUS [facility] Last Admin: 06/21/20 10:56 Dose: 999 mls/hr Documented by: Potassium Chloride/Sodium Chloride (Normal Saline With 40 Meq Kcl) 1,000 mls @ 150 mls/hr IV ONETIME ONE Stop: 06/21/20 17:39 Last Admin: 06/21/20 10:53 Dose: 150 mls/hr Documented by: Potassium Chloride/Sodium Chloride (Normal Saline With 40 Meq Kcl) 1,000 mls @ 150 mls/hr IV ASDIRECTED [facility] Stop: 06/22/20 20:39 Last Admin: 06/22/20 20:01 Dose: 150 mls/hr Documented by: Magnesium Sulfate (Magnesium Sulfate In Water Premix) 2 gm in 50 mls @ 50 mls/hr IV ONETIME ONE Stop: 06/23/20 13:14 Last Admin: 06/23/20 12:21 Dose: 50 mls/hr Documented by: Lorazepam (Ativan) 1 mg IVPUSH ONETIME ONE Stop: 06/20/20 12:19 Last Admin: 06/20/20 12:34 Dose: 1 mg Documented by: Lorazepam (Ativan) 0 mg IVPUSH Q4H PRN; Protocol PRN Reason: CIWAA Last Admin: 06/24/20 08:05 Dose: 1 mg Documented by: Midazolam HCl (Versed 1 Mg/Ml) Confirm Administered Dose 2 mg .ROUTE .STK-MED ONE Stop: 06/20/20 13:09 Last Admin: 06/20/20 13:27 Dose: Not Given Documented by: Ondansetron HCl (Zofran) 4 mg IVPUSH ONETIME ONE Stop: 06/20/20 10:52 Last Admin: 06/20/20 11:30 Dose: 4 mg Documented by: Ondansetron HCl (Zofran) 4 mg IVPUSH ONETIME ONE Stop: 06/20/20 12:19 Last Admin: 06/20/20 12:34 Dose: 4 mg Documented by: Pantoprazole Sodium (Protonix Iv) 40 mg IV Q24H [facility] Last Admin: 06/20/20 13:06 Dose: Not Given Documented by: Potassium Chloride (Klor-Con M20) 40 meq PO ONETIME ONE Stop: 06/22/20 13:47 Last Admin: 06/22/20 18:30 Dose: 40 meq Documented by: Potassium Chloride (Klor-Con M20) 40 meq PO ONETIME ONE Stop: 06/22/20 19:01 Last Admin: 06/22/20 18:55 Dose: 40 meq Documented by: Potassium Chloride (Klor-Con M20) 40 meq PO ONETIME ONE Stop: 06/23/20 11:48 Last Admin: 06/23/20 12:20 Dose: 40 meq Documented by: Sodium Chloride (Saline Flush) 10 ml FLUSH ASDIRECTED PRN PRN Reason: Keep Vein Open Last Admin: 06/20/20 10:45 Dose: 10 ml Documented by: Sodium Chloride (Saline Flush) 2.5 ml FLUSH ASDIRECTED PRN PRN Reason: Keep Vein Open Last Admin: 06/20/20 10:45 Dose: 2.5 ml Documented by:
== END 2020-06-27 13:24 | disposition home or self-care (01) | DRG 897 ==
LOC: MW.ED 10:01 → MW.MS 12:23
PROVIDERS: ADMIT Internal Medicine; ATTEND Internal Medicine
DX: F10.229 Alcohol dependence with intoxication, unspecified (principal); A04.72 Enterocolitis due to Clostridium difficile, not specified as recurrent; Y90.8 Blood alcohol level of 240 mg/100 ml or more; Z20.828 Contact with and (suspected) exposure to other viral communicable diseases; F17.200 Nicotine dependence, unspecified, uncomplicated
CPT/HCPCS: 36415; 70450; 70450-26; 71045; 71045-26; 76705; 76705-26; 80053; 80305-QW; 80307; 81003; 82962; 83690; 83735; 84100; 84443; 84484; 85025; 87045; 87046; 87324; 87449; 87493; 87899; 93005; 93010; 96365; 96375; 96376; 97161-GP; 97530-GP; 99285; 99285-25; A9270-GY; C9113; J2060; J2405; J2550; J3411; J3475; J3480; J7030; J7040; U0002